=== PATIENT | female | born 1945 | race Caucasian/White ===

== ENCOUNTER 2016-09-05 20:24 | Inpatient (IN) | payer MEDICARE ==
[~2016-09-05] VITALS: Ht 160 cm; Wt 90.0 kg
[~2016-09-05 20:24] MED LIST: ADVA250A INH; AMLO5TAB96 PO; ATOR20TA42 PO; CYMB60CA PO; DIOV160T3 PO; DUONSOL2 NEB; MONT10TA2 PO; NAPR-576 PO; NEXI40CA PO; TRAM50TA PO; [UNRECOGNIZED DRUG - CODE]
[2016-09-05 20:30] VITALS: BP 199/93; PULSE 91; RESP 26; TEMP 98.6; O2SAT 95
[2016-09-05] MEDS ORDERED: SPIRCAP INH (20:37)
[2016-09-05] MEDS ORDERED: JANU50TA8 PO (20:37)
[2016-09-05] MEDS ORDERED: DIOV160T3 PO (20:38)
--- NOTE | 2016-09-05 20:43 | PD ---
HPI Chief Complaint: Respiratory Symptoms Time Seen by Provider: 20:36 Travel History International Travel<30 days: No Contact w/Intl Traveler<30days: No Traveled to known affect area: No History of Present Illness HPI Patient is a 70-year-old female with history of COPD who uses 2L nasal canula O2 at all times, presents to ER with complaints of COPD exacerbation. Patient reports that since Monday, she has been feeling increasingly short of breath. Patient reports that she has had increased cough and congestion with thick green to yellow mucus production. Patient reports no fevers or chills, reports that she has increased chest congestion with no chest pain. Patient reports no recent travels or trips. Patient with no sick contacts. Patient reports that she feels as if this is COPD exacerbation. When EMS arrived on scene, patient's pulse ox was 85-87% on room air. Patient was given one 25 mg of Solu-Medrol as well as 2 treatments with minimal relief of symptoms. PFSH Past Medical History COPD: Yes (wears o2 2l) Diabetes: Yes Patient Takes Glucophage: Yes Hypertension: Yes Influenza Vaccination: Yes ?: Not Past Surgical History Hysterectomy: Yes Family History Family History: Negative Social History Alcohol Use: No Tobacco Use: No Substance Use: No Allergies-Medications (Allergen,Severity, Reaction): Coded Allergies: Penicillin (Verified Allergy, Severe, Hives, 09/05/16) Erythromycin (Verified Allergy, Mild, Yeast infection, 09/05/16) Reported Meds & Prescriptions Reported Meds & Active Scripts Active Reported Diovan Hct (Valsartan-Hydrochlorothiazide) 160-12.5 Mg Tab 1 Tab PO DAILY Janumet (Sitagliptin-Metformin) 50-1,000 Mg Tab 1 Tab PO DAILY Spiriva Handihaler (Tiotropium Inh) 18 Mcg Cap 18 Mcg INH DAILY 1 capsule = 18 mcg Review of Systems General / Constitutional: No: Fever Eyes: No: Visual changes HENT: No: Headaches Cardiovascular: No: Chest Pain or Discomfort Respiratory: Positive: Cough, Shortness of Breath, Wheezing Gastrointestinal: No: Nausea, Vomiting, Diarrhea, Abdominal Pain Genitourinary: No: Dysuria Musculoskeletal: No: Pain Skin: No Rash Neurologic: No: Weakness Psychiatric: No: Depression Endocrine: No: Polydipsia Hematologic/Lymphatic: No: Easy Bruising Physical Exam Narrative GENERAL: Patient in moderate distress SKIN: Warm and dry. HEAD: Atraumatic. Normocephalic. EYES: Pupils equal and round. No scleral icterus. No injection or drainage. ENT: No nasal bleeding or discharge. Mucous membranes pink and moist. NECK: Trachea midline. No JVD. CARDIOVASCULAR: Tachycardic. No murmur appreciated. RESPIRATORY: Positive accessory muscle use. Patient with scattered wheezing bilaterally with decreased breath sounds GASTROINTESTINAL: Abdomen soft, non-tender, nondistended. Hepatic and splenic margins not palpable. MUSCULOSKELETAL: No obvious deformities. No clubbing. No cyanosis. No edema. NEUROLOGICAL: Awake and alert. No obvious cranial nerve deficits. Motor grossly within normal limits. Normal speech. PSYCHIATRIC: Appropriate mood and affect; insight and judgment normal. Data Data Last Documented VS Vital Signs Date Time Temp Pulse Resp B/P Pulse Ox O2 Delivery O2 Flow Rate FiO2 09/05/16 22:30 97 22 142/89 94 Nasal Cannula 2 09/05/16 20:30 98.6 Orders Complete Blood Count With Diff (09/05/16 20:37) Comprehensive Metabolic Panel (09/05/16 20:37) B-Type Natriuretic Peptide (09/05/16 20:37) Act Partial Throm Time (Ptt) (09/05/16 20:37) Prothrombin Time / Inr (Pt) (09/05/16 20:37) Magnesium (Mg) (09/05/16 20:37) Ckmb (Isoenzyme) Profile (09/05/16 20:37) Troponin I (09/05/16 20:37) Urinalysis - C+S If Indicated (09/05/16 20:37) Influenzae A/B Antigen (09/05/16 20:37) Blood Culture (09/05/16 20:37) Iv Access Insert/Monitor (09/05/16 20:37) Electrocardiogram (09/05/16 20:37) Ecg Monitoring (09/05/16 20:37) Oximetry (09/05/16 20:37) Oxygen Administration (09/05/16 20:37) Chest, Single Ap (09/05/16 20:37) Sodium Chloride 0.9% Flush (Ns Flush) (09/05/16 20:45) Albuterol-Ipratropium Neb (Duoneb Neb) (09/05/16 20:45) Albuterol Neb (Albuterol Neb) (09/05/16 22:30) Aspirin (Aspirin) (09/05/16 23:00) Labs Laboratory Tests Test 09/05/16 09/05/16 20:40 22:00 White Blood Count 8.1 TH/MM3 Red Blood Count 4.20 MIL/MM3 Hemoglobin 12.8 GM/DL Hematocrit 38.4 % Mean Corpuscular Volume 91.4 FL Mean Corpuscular Hemoglobin 30.6 PG Mean Corpuscular Hemoglobin 33.4 % Concent Red Cell Distribution Width 13.5 % Platelet Count 376 TH/MM3 Mean Platelet Volume 9.8 FL Neutrophils (%) (Auto) 59.5 % Lymphocytes (%) (Auto) 25.7 % Monocytes (%) (Auto) 11.7 % Eosinophils (%) (Auto) 2.5 % Basophils (%) (Auto) 0.6 % Neutrophils # (Auto) 4.8 TH/MM3 Lymphocytes # (Auto) 2.1 TH/MM3 Monocytes # (Auto) 0.9 TH/MM3 Eosinophils # (Auto) 0.2 TH/MM3 Basophils # (Auto) 0.0 TH/MM3 CBC Comment DIFF FINAL Differential Comment Prothrombin Time 10.2 SEC Prothromb Time International 0.9 RATIO Ratio Activated Partial 27.8 SEC Thromboplast Time B-Type Natriuretic Peptide 92 PG/ML Sodium Level 141 MEQ/L Potassium Level 3.8 MEQ/L Chloride Level 102 MEQ/L Carbon Dioxide Level 33.2 MEQ/L Anion Gap 6 MEQ/L Blood Urea Nitrogen 9 MG/DL Creatinine 0.77 MG/DL Estimat Glomerular Filtration 75 ML/MIN Rate Random Glucose 197 MG/DL Calcium Level 8.9 MG/DL Magnesium Level 1.8 MG/DL Total Bilirubin 0.3 MG/DL Aspartate Amino Transf 9 U/L (AST/SGOT) Alanine Aminotransferase 13 U/L (ALT/SGPT) Alkaline Phosphatase 90 U/L Total Creatine Kinase 66 U/L Troponin I 0.06 NG/ML Total Protein 6.5 GM/DL Albumin 3.3 GM/DL [facility] Medical Decision Making Medical Screen Exam Complete: Yes Emergency Medical Condition: Yes Interpretation(s) ekg at 2048: nsr at 93bpm, qt/qtc: 346/397, no acute st or t wave changes Vital Signs Date Time Temp Pulse Resp B/P Pulse Ox O2 Delivery O2 Flow Rate FiO2 09/05/16 20:30 60 26 91 Room Air 09/05/16 20:30 98.6 91 26 199/93 95 Nasal Cannula 2 Differential Diagnosis Pneumonia, COPD exacerbation, influenza, ACS, arrhythmia, PE, pneumothorax Narrative Course Patient is a 70-year-old female who presents to emergency room with complaints of COPD exacerbation. Patient reports that she has been feeling sick since Monday, reports increased reductive cough, and congestion. Reports that she uses 2L NC at all times. No fever/chills/sick contacts. Patient does follow with Dr Guzman with pulmonology. Patient placed on manager monitoring as well as continuous pulse oximetry. CBC, BMP, x-ray chest ordered for evaluation of symptoms. We'll give patient 3 duo nebs, will continue to monitor her. Patient reevaluated, patient received 2 albuterol treatments, 3 duo nebs, patient still with increased work of breathing. Patient reports that she is only feeling mildly better with her neb treatments. Will continue to give patient neb treatments patient with continued work of breathing, will admit to [facility] Physician Communication Physician Communication Discussed case with Clifton Dupree will accept admission under Dr Luciano Diagnosis Primary Impression: COPD exacerbation Additional Impression: positive troponin Admitting Information Admitting Physician Requests: Observation Catherine Ward DO Sep 05, 2016 20:43
[2016-09-05] MEDS ORDERED: SODIUM CHLORIDE 0.9% FLUSH 5 ML FLUSH IVF PRN ×2 (20:45→23:30)
[2016-09-05 21:10] VITALS: RESP 26; O2SAT 94
[2016-09-05] MEDS: RESP: ALBUTEROL 2.5 MG/IPRATROPIUM 0.5 MG NEB (SCH) INH (21:10)
--- NOTE | 2016-09-05 21:11 | RADRPT ---
EXAM DATE/TIME: 09/05/2016 20:47 [place] COMPARISON: No previous studies available for comparison. INDICATIONS : Shortness of breath and cough. MEDICAL HISTORY : Hypertension. Diabetes mellitus type II. Chronic obstructive pulmonary disease. SURGICAL HISTORY : None. ENCOUNTER: Initial ACUITY: 3 days PAIN SCORE: 0/10 LOCATION: Bilateral chest FINDINGS: A single view of the chest demonstrates the lungs to be symmetrically aerated without evidence of mas s, infiltrate or effusion. Mild basilar atelectasis or scarring. The cardiomediastinal contours are unremarkable. Osseous structures are intact. CONCLUSION: 1. Minimal basilar atelectasis or scarring. No significant effusion. Bashir Crouch MD on September 05, 2016 at 21:09 Board Certified Radiologist. This report was verified electronically.
[2016-09-05 21:50] LABS: AUTOMATED NEUTROPHIL # 4.8 TH/MM3 (1.8-7.7); BASOPHIL % 0.6 % (0.0-2.0); EOSINOPHIL # 0.2 TH/MM3 (0-0.4); EOSINOPHIL % 2.5 % (0.0-4.0); HEMATOCRIT 38.4 % (35.0-46.0); HEMO FLAGS DIFF FINAL; LYMPH % 25.7 % (9.0-44.0); LYMPHOCYTE # 2.1 TH/MM3 (1.0-4.8); MEAN CELL VOLUME 91.4 FL (80.0-100.0); MEAN CORPUSCULAR HEMOGLOBIN 30.6 PG (27.0-34.0); MEAN CORPUSCULAR HGB CONC 33.4 % (32.0-36.0); MONO % 11.7 % (0.0-8.0); NEUT % 59.5 % (16.0-70.0); PLATELET COUNT 376 TH/MM3 (150-450); RED CELL DISTRIBUTION WIDTH 13.5 % (11.6-17.2); WHITE BLOOD COUNT 8.1 TH/MM3 (4.0-11.0)
[2016-09-05 21:54] LABS: APTT (PATIENT) 27.8 SEC (24.3-30.1); INTERNATIONAL NORMALIZED RATIO 0.9 RATIO; PROTHROMBIN TIME - PATIENT 10.2 SEC (9.8-11.6)
[2016-09-05 22:30] VITALS: BP 142/89; PULSE 97; RESP 22; O2SAT 94
[2016-09-05 22:54] LABS: ALKALINE PHOSPHATASE 90 U/L (45-117); ALT (GPT) 13 U/L (10-53); ANION GAP 6 MEQ/L (5-15); AST (GOT) 9 U/L (15-37); BICARBONATE 33.2 MEQ/L (21.0-32.0); BLOOD UREA NITROGEN 9 MG/DL (7-18); CHLORIDE 102 MEQ/L (98-107); GLOMERULAR FILTRATION RATE 75 ML/MIN (>89); MAGNESIUM 1.8 MG/DL (1.5-2.5); POTASSIUM 3.8 MEQ/L (3.5-5.1); SODIUM (NA) 141 MEQ/L (136-145); TOTAL BILIRUBIN ADULT 0.3 MG/DL (0.2-1.0)
[2016-09-05 22:55] LABS: CREATINE KINASE 66 U/L (26-192)
[2016-09-05] MEDS: RESP: ALBUTEROL 2.5 MG/3 ML NEB (SCH) INH (22:58)
[2016-09-05] MEDS ORDERED: ASPIRIN 325 MG TAB PO ONE (23:00)
[2016-09-05] MEDS ORDERED: RESP: ALBUTEROL 2.5 MG/3 ML NEB (PRN) INH (23:30)
[2016-09-05] MEDS ORDERED: BISACODYL 10 MG SUPP PR PRN (23:30)
[2016-09-05] MEDS ORDERED: SENNOSIDES 8.6 MG TAB PO PRN (23:30)
[2016-09-05] MEDS ORDERED: ONDANSETRON HCL 4 MG/2 ML VIAL IVP PRN (23:30)
[2016-09-05] MEDS ORDERED: ACETAMINOPHEN 325 MG TAB PO PRN (23:30)
[2016-09-06] VITALS (11 sets, daily range): BP systolic 126–170; BP diastolic 64–88; PULSE 68–111; RESP 17–22; TEMP 97.6–98.7; O2SAT 90–98
[2016-09-06] MEDS: methylPREDNISolone SOD SUCC 125 MG/2 ML VIAL IVP SCH ×3 (01:04→12:41)
[2016-09-06] MEDS: RESP: ALBUTEROL 2.5 MG/IPRATROPIUM 0.5 MG NEB (SCH) INH ×4 (03:39→20:41)
[2016-09-06] MEDS ORDERED: DEXTROSE 50% IN WATER 50 ML VIAL(D50) IV PUSH PRN (08:30)
[2016-09-06] MEDS ORDERED: GLUCAGON 1 MG/ML VIAL OTHER PRN (08:30)
[2016-09-06] MEDS ORDERED: NON-FORMULARY DRUG (Sitagliptin-Metformin (Janumet) 1 TAB) PO SCH (09:00)
[2016-09-06] MEDS ORDERED: NON-FORMULARY DRUG (Valsartan-Hydrochlorothiazide (Diovan Hct) 1 TAB) PO SCH (09:00)
--- NOTE | 2016-09-06 10:20 | HP.UPD ---
H&P Update Note Is a 70-year-old female admitted with COPD exacerbation. She has problems with diabetes, obesity and COPD. Her troponin is marginally elevated at 0.06. She denies any chest pain at this time. She will be continued on supplemental oxygen, intravenous steroids and empiric antibiotics. Home medications are continued. Metformin is on hold. Sliding scale of insulin is ordered in addition to long-acting insulin temporarily. Full history and physical dictated by nurse practitioner. The patient was seen and examined by the undersigned in room g 81 today 09/06/16 Ryann Lentz MD Sep 06, 2016 10:18
--- NOTE | 2016-09-06 10:34 | MH ---
cc: LEODAN BRIGGS MD DATE OF ADMISSION: 09/05/2016 DATE OF : 1945 CHIEF COMPLAINT Shortness of breath, cough, congestion. HISTORY OF PRESENT ILLNESS This is a pleasant 70-year-old white female who had been in her usual state of health up until the past week. She started complaining of generalized weakness and cough 5-6 days ago. States that she increasingly got short of breath. She has had some congestion with a green-yellow thick mucus, and she continues to cough this mucus up currently as we are speaking. The patient denies any fever, denies any chills. She does have some generalized muscle aches and weakness. She has had a decreased appetite with some nausea but no vomiting. On Monday, three days ago, the patient did complain of chest burning. She states that this is something that his familiar to her when she starts to get sick with cough and congestion. She does not relate this to any type of cardiac chest pain and has never had a history of heart disease. The patient denies any recent travel. She has not been in contact with any sick friends or relatives. She does have a significant history of COPD with exacerbation and a history of tobacco use. She states that she quit smoking approximately three months ago. PAST MEDICAL HISTORY 1. COPD with home O2. 2. Diabetes mellitus. 3. Hypertension. PAST SURGICAL HISTORY Hysterectomy. ALLERGIES 1. PENICILLIN. 2. ERYTHROMYCIN. MEDICATIONS Medications reported: 1. Diovan. 2. Janumet. 3. Spiriva inhaler. SOCIAL HISTORY The patient is for many years. Lives in her home with a significant other. She denies any alcohol use. No illicit drugs. Positive for long-term tobacco use up until three months ago, states that she quit cold turkey. FAMILY HISTORY COPD and heart disease. REVIEW OF SYSTEMS A 12-point review was done. Positives include cough, congestion, shortness of breath, chest burning x1, decreased appetite. All other systems are negative or unremarkable. PHYSICAL EXAMINATION VITAL SIGNS: Temperature 98.7, pulse labile between 68 and 94, respiratory rate labile between 17 and 22. Currently during this exam I noted her to be around 26 per minute. Blood pressure 138/77, high noted 168/74. O2 sat between 90 and 96% on two liters. GENERAL: This is a white female who looks her stated age, resting in the bed, head of the bed elevated approximately 70 degrees. She does have some mild dyspnea noted at rest. SKIN: Slightly pale but warm and dry. No rashes. HEENT: Atraumatic, normocephalic. PERRLA at 2 mm. No scleral icterus. No drainage. Mucous membranes are pink and slightly dry. NECK: Supple. CARDIOVASCULAR: Tachycardic rate. Heart sounds distant. No murmurs, rubs or gallops appreciated. She has no edema and her pulses are intact. LUNGS: Mild wheezing noted on expiration bilaterally, predominantly in the upper lobes. Minimal decreased breath sounds at the bases. ABDOMEN: Soft, nontender, nondistended. Active bowel sounds in all four quadrants. EXTREMITIES: She moves all of her extremities with purpose. She has no clubbing, cyanosis or edema. NEUROLOGIC: Awake and alert, answers questions, a good historian. Speech is clear. PSYCHIATRIC: Appropriate mood. Judgment is normal. DIAGNOSTIC DATA Sodium 141, potassium 3.8, chloride 102, carbon dioxide 33.2, anion gap 6, BUN 9, creatinine 0.77, glucose 197. AST is 9. Troponin x3 are 0.06, 0.06 and 0.04. BNP 92. Albumin 3.3. Total protein 6.5. WBC count 8.1, hemoglobin 12.8, hematocrit 38.4, platelet count 376, monocytes 11.7. INR is 0.9. Chest x-ray shows minimal basilar atelectasis. No significant effusion. ASSESSMENT 1. COPD exacerbation. 2. Hypertension. 3. History of depression. 4. Positive troponin, rule out [place]. 5. Tobacco abuse. PLAN 1. Admit for observation. Vital signs q.4h. Will start her on IV prednisone 60 mg q.6h., duo nebs, O2 at two liters and monitor her vital signs which will include fever, pulse, respiratory rate and blood pressure. 2. For her diabetes will add Accu-Cheks and protocols for hypo or hyperglycemia, sliding scale insulin. 3. For her hypertension we will reconcile her medications and monitor any abnormals. 4. For her asthma this will include her duo nebs and assessment for any shortness of breath or change in lung sounds. 5. For her positive troponin we will monitor telemetry, monitor vital signs and rule out any cardiac events. Will monitor her labs. She is to report any further chest pain. She will get EKGs for any further pain. 6. Tobacco abuse. Education and encouragement to continue her abstinence. 7. The patient will have DVT prophylaxis with aspirin and PUD prognosis with Protonix. 8. Will monitor EKG. 9. PRN for fever and pain. 10.Bowel regimen with stool softeners and/or laxative as Warranted. Dictated by: LEONARD Morin MD SONIA Moreno/ZHANE /8:30 AM /10:33 AM
[2016-09-06] MEDS: SODIUM CHLORIDE 0.9% FLUSH 5 ML FLUSH IVF SCH ×2 (10:47→20:24)
[2016-09-06] MEDS: HEPARIN SODIUM - SQ 10,000 UNITS/ML VIAL SQ SCH ×2 (10:48→20:24)
[2016-09-06] MEDS: VALSARTAN 160 MG TAB PO SCH (10:48)
[2016-09-06] MEDS: HYDROCHLOROTHIAZIDE 12.5 MG CAP PO SCH (10:48)
[2016-09-06] MEDS: PANTOPRAZOLE SOD 40 MG DELAYED RELEASE TAB PO SCH (10:48)
[2016-09-06] MEDS: INSULIN DETEMIR 100 UNITS/ML VIAL SQ SCH ×2 (10:48→20:24)
[2016-09-06] MEDS ORDERED: metFORMIN HCL 500 MG TAB PO SCH (11:00)
[2016-09-06 11:18] LABS: BLOOD GAS BASE EXCESS 5.8 mmol/L (-2-2); BLOOD GAS CARBOXYHEMOGLOBIN 2.4 % (0-4); BLOOD GAS HCO3 31 mmol/L (22-26); BLOOD GAS METHEMOGLOBIN 1.9 % (0-2); BLOOD GAS O2 HGB SATURATION 82 % (90-100); BLOOD GAS OXYGEN CONTENT 14.9 Vol % (12.0-20.0); BLOOD GAS PCO2 54 mmHg (38-42); BLOOD GAS PO2 49 mmHG (61-120); BLOOD GAS TOTAL HGB 12.9 G/DL (12.0-16.0); TEMP CORR TO 98.6
[2016-09-06 11:19] LABS: CRITICAL VALUE YES; DRAW SITE RT RADIAL; FIO2 21 %; NUMBER OF ARTERIAL PUNCTURES 1; STAT NO; ULNAR PULSE PRESENT
[2016-09-06] MEDS: INSULIN ASPART SUPPLEMENTAL SCALE SQ SCH ×3 (12:41→20:23)
[2016-09-06 12:43] LABS: BLOOD, URINE SMALL (NEG); COMMENT (UR) CULT NOT INDICATED; CULTURE IF INDICATED CULT NOT INDICATED; GLUCOSE,URINE 1000 mg/dL (NEG); KETONE, URINE NEG (NEG); MUCUS URINE FEW /lpf (OCC); NITRITE,URINE NEG (NEG); PH, URINE 6.5 (5.0-8.5); SQUAMOUS EPITHELIAL CELL URINE 1 /hpf (0-5); URINE COLOR YELLOW (YELLW/STRAW)
--- NOTE | 2016-09-06 13:30 | EKG ---
Date Performed: 09/05/2016 Time Performed: 20:49:58 PTAGE: 70 years EKG: Sinus rhythm WITH OCCASIONAL ECTOPIC PREMATURE COMPLEXES LEFT ANTERIOR FASCICULAR BLOCK POSSIBLE ANTERIOR MYOCARD IAL INFARCTION ABNORMAL ECG NO PREVIOUS TRACING DOCTOR: Ana Luisa Galeas Interpretating Date/Time 09/06/2016 13:29:24
--- NOTE | 2016-09-06 13:38 | EKG ---
Date Performed: 09/06/2016 Time Performed: 01:07:28 PTAGE: 70 years EKG: Sinus rhythm WITH FREQUENT VENTRICULAR PREMATURE COMPLEXES WITH OCCASIONAL SUPRAVENTRICULAR PREMATURE COMPLEXES M ARKED LEFT AXIS DEVIATION ABNORMAL ECG Compared to prior tracing no significant change PREVIOUS TRACING : 09/05/2016 20.49 DOCTOR: Ana Luisa Galeas Interpretating Date/Time 09/06/2016 13:37:53
[2016-09-06] MEDS: LEVOFLOXACIN 500 MG PREMIX INJ 100 ML IV SCH (14:36)
--- NOTE | 2016-09-06 14:50 | EKG ---
Date Performed: 09/06/2016 Time Performed: 07:05:36 PTAGE: 70 years EKG: Sinus rhythm WITH OCCASIONAL SUPRAVENTRICULAR PREMATURE COMPLEXES LEFT ANTERIOR FASCICULAR BLOCK POSSIBLE ANTERIO R MYOCARDIAL INFARCTION ABNORMAL ECG Compared to the PREVIOUS TRACING , frequent unifocal PVCs have resolved PREVIOUS TRACIN09/06/2016 01.0 7 DOCTOR: Ana Luisa Galeas Interpretating Date/Time 09/06/2016 14:49:19
[2016-09-06] MEDS: methylPREDNISolone SOD SUCC 40 MG/1 ML VIAL IVP SCH ×2 (17:29→23:05)
--- NOTE | 2016-09-06 20:14 | MB ---
cc: DGAOBERTO KWONG DATE OF CONSULTATION 09/06/2016 REASON FOR CONSULTATION Chronic obstructive pulmonary disease and respiratory distress. HISTORY OF THE PRESENT ILLNESS This is a 70-year-old white female with longstanding history of COPD and chronic bronchitis was admitted with progressive shortness of breath, cough, chest congestion, greenish expectoration and weakness. The patient denied fevers, denied hemoptysis. She has had reflux and had some nausea but no vomiting. She also has had some leg swelling. Since she was not able to feel any better in spite of using her nebulizers, she was brought to the emergency room and subsequently admitted. The patient has been a long-time smoker but has quit smoking recently. PAST MEDICAL HISTORY The patient past history has included: 1. Chronic obstructive pulmonary disease with chronic bronchitis and emphysema, oxygen-dependent. 2. History of diabetes and hypertension. PAST SURGICAL HISTORY She has had a hysterectomy. No other surgery. SOCIAL HISTORY Habits, the patient smoked one-pack per day for over 35 years and quit 3 months ago. Alcohol use none. FAMILY HISTORY Significant for heart disease and chronic bronchitis. REVIEW OF SYSTEMS The patient has gained weight. She has leg swelling. She has joint pains of her extremities. She has cough and wheezing, epigastric distress and reflux. Denies urinary symptoms. Denies leg or calf muscle pains. She has some anxiety attacks. PHYSICAL EXAMINATION GENERAL: This elderly moderately obese white female is alert and moderately dyspneic. VITAL SIGNS: Blood pressure is 145/80, pulse is 92, respiratory rate 22, temperature 98. HEENT: Head is normocephalic. Pupils are reactive. Tongue is moist. Throat is injected. Nasal mucosa erythematous. NECK: Supple. No bruits. No venous distention or thyromegaly. CHEST: Equal movements with an increased AP diameter. Expiratory wheezes throughout both lung smart with distant breath sounds and prolonged expirations. HEART: The heart sounds are regular S1-S2. No murmur. ABDOMEN: Soft. Protuberant. No masses. No organomegaly. EXTREMITIES: Mild edema with decreased peripheral pulses. Reflexes are normal. NEUROLOGICAL: The patient is alert and oriented and cooperative. SKIN: No lesions noted. IMPRESSION 1. COPD with acute exacerbation. 2. Emphysema with chronic bronchitis. 3. Hypertension. 4. Depression and anxiety. PLAN 1. The patient has been started on nebulized DuoNeb solution q.i.d. 2. Add Levaquin 500 milligrams IV daily. 3. Solu-Medrol 40 mg IV every 6 hours will be continued. 4. Blood sugar needs to be monitored. 5. We will get a bedside pulmonary function study this week. 6. Continue with antihypertensive medications. 7. Her present chest x-ray does not show any active infiltrates but sputum will be sent for Gram stain and culture. 8. Oxygen supplementation at 3 liters was placed and we will be weaned down. I will follow the case with you Dr. Lentz. Thank you for this consultation. Dagoberto Kwong MD JMATIAS/CHANTEL /7:16 PM /7:56 PM
[2016-09-07] MEDS: RESP: ALBUTEROL 2.5 MG/IPRATROPIUM 0.5 MG NEB (SCH) INH ×4 (04:07→19:52)
[2016-09-07 04:34] VITALS: BP 120/64; PULSE 95; RESP 20; TEMP 97.8; O2SAT 96
[2016-09-07] MEDS: methylPREDNISolone SOD SUCC 40 MG/1 ML VIAL IVP SCH ×3 (05:11→21:42)
[2016-09-07] MEDS: INSULIN ASPART SUPPLEMENTAL SCALE SQ SCH ×4 (06:03→21:42)
[2016-09-07 09:04] VITALS: O2SAT 95
--- NOTE | 2016-09-07 09:13 | HHI.PR ---
Subjective Remarks No SOB at rest Exertional dyspnea mild Appetite improving No headache No restlessness noted Objective Objective Results - Vital Signs Date Time Temp Pulse Resp B/P Pulse Ox O2 Delivery O2 Flow Rate FiO2 09/07/16 09:04 95 Nasal Cannula 3.00 09/07/16 04:34 97.8 95 20 120/64 96 09/06/16 23:03 97.7 96 20 137/64 96 09/06/16 19:33 93 Nasal Cannula 3.00 09/06/16 18:50 95 18 170/70 95 09/06/16 14:34 97.6 95 22 145/71 90 09/06/16 13:44 93 Nasal Cannula 3.00 09/06/16 11:25 97.8 111 22 126/79 91 I/O 09/06/16 09/06/16 09/06/16 09/07/16 09/07/16 09/07/16 07:00 15:00 23:00 07:00 15:00 23:00 Intake Total 480 ml Output Total 300 ml 400 ml Balance 180 ml -400 ml Intake Oral 480 ml Output Urine Total 300 ml 400 ml # Voids 3 1 Result Diagram: 09/05/16203909/05/162199 Other Results Last Impressions Chest X-Ray 09/05/162036 Signed Impressions: Service Date/Time: Monday, September 05, 2016 20:47 - CONCLUSION: 1. Minimal basilar atelectasis or scarring. No significant effusion. Bashir Crouch MD Medications and IVs Active Medications Hydrochlorothiazide (Microzide) 12.5 mg DAILY PO Last administered on 09/06/16 10:48; Admin Dose 12.5 MG; Start 09/06/16 at 10:00 Insulin Detemir (Levemir Inj) 5 units Q12HR SQ Last administered on 09/06/16 20 :24; Admin Dose 5 UNITS; Start 09/06/16 at 10:15 Levofloxacin/ Dextrose (Levaquin 500 Mg Premix Inj) 100 ml @ 100 mls/hr Q24H IV Last administered on 09/06/16 14:36; Admin Dose 100 MLS/HR; Start 09/06/16 at 14:00 Metformin HCl (Glucophage) 1,000 mg DAILY PO; Start 09/06/16 at 11:00; Stop at 11:00; Status DC Methylprednisolone Sodium Succinate 40 mg 40 mg Q6HR IVP Last administered on 05:11; Admin Dose 40 MG; Start 09/06/16 at 18:00 Sitagliptin Phosphate (Januvia) 50 mg DAILY PO; Start 09/06/16 at 11:00; Stop at 11:00; Status DC Valsartan (Diovan) 160 mg DAILY PO Last administered on 09/06/16 10:48; Admin Dose 160 MG; Start 09/06/16 at 10:00 ROS General: Weakness (improving), Other (10 point ROS done. Positives include weakness but improving, anxiety over current condition and outside factors,. All other systems negative or unremarkable) Pulmonary: Cough (improving) Neuro/MS: Other (anxiety outside and medical, scared) Physical Exam Physical Exam GENERAL: This is a white female who looks her stated age, resting in the bed, head of the bed elevated 90. SKIN: Slightly pale but warm and dry. No rashes. HEENT: Atraumatic, normocephalic. PERRLA at 3 mm. No scleral icterus. No drainage. Mucous membranes are pink and slightly dry. NECK: Supple. CARDIOVASCULAR: Tachycardic rate. Heart sounds distant. No murmurs, rubs or gallops appreciated. She has no edema and her pulses are intact. LUNGS: Mild wheezing , Minimal decreased breath sounds at the bases ABDOMEN: Soft, nontender, nondistended. Active bowel sounds in all four quadrants. EXTREMITIES: She moves all of her extremities with purpose. She has no clubbing, cyanosis or edema. NEUROLOGIC: Drowsy, but responds to verbal stimuli answers questions, a good historian. Speech is clear. Objective Remarks I am resting better this morning. A/P Assessment and Plan ASSESSMENT 1. COPD exacerbation. 2. Hypertension. 3. History of depression. 4. Positive troponin, rule out [place]. 5. Tobacco abuse. Vital signs q.4h. Mild hyperglycemia probably secondary to IV steroids. Monitor duo nebs, O2 at 2L , prn now Accu-Cheks and protocols for hypo or hyperglycemia, sliding scale insulin. reconcile her medications , done Telemetry, regular rate and rhythm no issues shortness of breath or change in lung sounds. EKGs if patient has any chest pain Tobacco abuse. Education and encouragement to continue her abstinence. The patient will have DVT prophylaxis with aspirin and PUD prognosis with Protonix. PRN for fever and pain management affective Bowel regimen with stool softeners and/or laxative as Warranted. Patient is less short of breath this a.m. discussed her plan of care, We'll follow needs today Discharge Planning home vs family Discussed With: Nurse, Family (patient), Other (Dr. Lentz, patient seen on his behalf) Lorena Canseco Sep 07, 2016 09:13
[2016-09-07] MEDS: HYDROCHLOROTHIAZIDE 12.5 MG CAP PO SCH (10:22)
[2016-09-07] MEDS: VALSARTAN 160 MG TAB PO SCH (10:24)
[2016-09-07] MEDS: INSULIN DETEMIR 100 UNITS/ML VIAL SQ SCH ×2 (10:25→21:42)
[2016-09-07] MEDS: PANTOPRAZOLE SOD 40 MG DELAYED RELEASE TAB PO SCH (10:25)
[2016-09-07] MEDS: HEPARIN SODIUM - SQ 10,000 UNITS/ML VIAL SQ SCH ×2 (10:26→21:41)
[2016-09-07 13:10] VITALS: BP 138/79; PULSE 94; RESP 21; TEMP 98; O2SAT 98
[2016-09-07] MEDS: SODIUM CHLORIDE 0.9% FLUSH 5 ML FLUSH IVF SCH ×2 (13:39→21:41)
[2016-09-07] MEDS: LEVOFLOXACIN 500 MG PREMIX INJ 100 ML IV SCH (13:40)
[2016-09-07] MEDS ORDERED: ALBUTEROL SULFATE 90 MCG/ACT HFA 18 GM INHALER INH PRN (14:15)
[2016-09-07] MEDS ORDERED: VANCOMYCIN INJ 1,000 MG in SODIUM CHLOR 0.9% 250 ML INJ 250 ML IV ONE (15:00)
[2016-09-07] MEDS ORDERED: Vancomycin Consult Pharmacy 1 EA OTHER SCH (15:15)
[2016-09-07 16:00] VITALS: BP 209/95; PULSE 131; RESP 26; TEMP 96.5; O2SAT 94
[2016-09-07] MEDS: VANCOMYCIN INJ 1,500 MG in SODIUM CHLORID 0.9% 500 ML INJ 500 ML IV SCH (18:07)
--- NOTE | 2016-09-07 18:18 | HHI.PR ---
Subjective Remarks Less wheezing.Coughing up yellow sputum.SOB at rest. Objective Vital Signs Date Time Temp Pulse Resp B/P Pulse Ox O2 Delivery O2 Flow Rate FiO2 09/07/16 16:00 96.5 131 26 209/95 94 09/07/16 13:10 98.0 94 21 138/79 98 09/07/16 09:04 95 Nasal Cannula 3.00 09/07/16 04:34 97.8 95 20 120/64 96 09/06/16 23:03 97.7 96 20 137/64 96 09/06/16 19:33 93 Nasal Cannula 3.00 09/06/16 18:50 95 18 170/70 95 I/O 09/06/16 09/06/16 09/06/16 09/07/16 09/07/16 09/07/16 07:00 15:00 23:00 07:00 15:00 23:00 Intake Total 480 ml Output Total 300 ml 400 ml Balance 180 ml -400 ml Intake Oral 480 ml Output Urine Total 300 ml 400 ml # Voids 3 1 Result Diagram: 09/05/16203909/05/162199 Objective Remarks GENERAL: This elderly moderately obese white female is alert and moderately dyspneic. HEENT: Head is normocephalic. Pupils are reactive. Tongue is moist. Throat is injected. Nasal mucosa erythematous. NECK: Supple. No bruits. No venous distention or thyromegaly. CHEST: Equal movements with an increased AP diameter. Expiratory wheezes Over both lung smart with distant breath sounds and prolonged expirations. HEART: The heart sounds are regular S1-S2. No murmur. ABDOMEN: Soft. Protuberant. No masses. No organomegaly. EXTREMITIES: Mild edema with decreased peripheral pulses. Reflexes are normal. NEUROLOGICAL: The patient is alert and oriented and cooperative. SKIN: No lesions noted. Assessment and Plan Assessment and Plan IMPRESSION 1. COPD with acute exacerbation. 2. Emphysema with chronic bronchitis. 3. Hypertension. 4. Depression and anxiety. 5. Asthmatic Bronchitis Plan : 1. Continue O2 at 3 L. 2. Continue Levaquin 500 mg daily. 3. Nebs qid , duoneb. 4. Solumedrol 40 mg IV q8h. 5. Labs in am. 6. Symbicort 160/4.5 Mcg , 2puffs bid. 7. Cont Diuretic daily. 8. D/C Vanco. Staph is probably contaminant. Ria Kwong MD Sep 07, 2016 18:18
[2016-09-07 19:53] VITALS: O2SAT 92
[2016-09-07 20:27] VITALS: BP 129/66; PULSE 89; RESP 18; TEMP 98; O2SAT 93
[2016-09-08] VITALS (7 sets, daily range): BP systolic 117–189; BP diastolic 66–115; PULSE 68–97; RESP 18–21; TEMP 96.5–98.8; O2SAT 94–98
[2016-09-08] MEDS: RESP: ALBUTEROL 2.5 MG/IPRATROPIUM 0.5 MG NEB (SCH) INH ×4 (03:26→20:04)
[2016-09-08] MEDS: methylPREDNISolone SOD SUCC 40 MG/1 ML VIAL IVP SCH ×3 (04:58→23:11)
[2016-09-08] MEDS: VANCOMYCIN INJ 1,500 MG in SODIUM CHLORID 0.9% 500 ML INJ 500 ML IV SCH (04:58)
[2016-09-08] MEDS: INSULIN ASPART SUPPLEMENTAL SCALE SQ SCH ×4 (06:21→23:11)
--- NOTE | 2016-09-08 07:56 | HHI.PR ---
Subjective Remarks sob improved mild cough no cp no fever no acute changes overnight asking about lab results Objective Objective Results - Vital Signs Date Time Temp Pulse Resp B/P Pulse Ox O2 Delivery O2 Flow Rate FiO2 09/08/16 06:15 98.1 82 20 117/66 94 09/08/16 00:27 98.0 74 20 163/89 94 09/07/16 20:27 98.0 89 18 129/66 93 09/07/16 19:53 92 Nasal Cannula 3.00 09/07/16 16:00 96.5 131 26 209/95 94 09/07/16 13:10 98.0 94 21 138/79 98 09/07/16 09:04 95 Nasal Cannula 3.00 I/O 09/07/16 09/07/16 09/07/16 09/08/16 09/08/16 09/08/16 07:00 15:00 23:00 07:00 15:00 23:00 Intake Total 1250 ml Output Total 0 ml 500 ml Balance 1250 ml -500 ml Intake Oral 750 ml IV Total 500 ml Output Urine Total 500 ml Stool Total 0 ml # Voids 1 3 Result Diagram: 09/05/16203909/05/160 Other Results Laboratory Tests Test 09/07/16 22:14 Nasal Screen MRSA (PCR) NEGATIVE Date/Time Procedure Status Source Growth 09/05/16 20:40 Influenza Types A,B Antigen (TAE) - Final Complete Nasal Aspirate NEGATIVE FOR FLU A AND B ANTIGEN.... 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 She is alert and awake, oriented x 3 HEAD: Normocephalic without any lesion or mass noted. Facial features appear symmetric. EYES: Perrla, Normal eye movement,no Icterus. no Conj congestion. OROPHARYNGEAL: Oropharynx without erythema or edema. MOUTH/THROAT: Tongue midline. Buccal mucosa is moist NECK: Supple. No nuchal rigidity or lymphadenopathy. Trachea midline without deviation. Thyroid not palpable, no bruits appreciated. CARDIAC: Regular rhythm, regular rate, S1 and S2 are heard. No Murmur; no gallops or rubs. LUNGS: Mild exp. wheeze, diminished at bases. ABDOMEN: Soft, nontender, no organomegaly or masses. Bowel sounds are heard in all four quadrants. No rebound. No guarding. EXTREMITIES: no edema. Pulses equal bilateral. no cyanosis. NEUROLOGICAL: Patient mood and affect appropriate. Cranial nerves II through XII grossly intact. Muscle strength 5/5 in the upper and lower extremities bilaterally. Deep tendon reflexes are 2+ in the upper and lower extremities bilaterally. SKIN:Warm and moist PSYCH: Mood and affect appropriate Urinary Catheter: No Vascular Central Line Catheter: No A/P Diagnosis: (1) COPD exacerbation (2) HYPERTENSION NOS (3) Depressive disorder (4) Tobacco abuse (5) Elevated troponin (6) Diabetes 1.5, managed as type 2 Assessment and Plan continue with duonebs/IV steroids/oxygen appreciate pulm input tobacco abuse counseling, needs to quit BC results noted, poss. contaminant will dc Vanco Continue Levaquin Accucheck AC/HS with ISS diabetic diet Trop noted, not trending up. start low dose ASA BP control, cont. home meds Heparin DVT prophylaxis Hopefully dc tomorrow improving CM for DC planning D/W RN D/W Dr. Lentz D/W pt This patient was seen by myself and Dr. Lentz, this note is written on his behalf. Discussed With: Nurse, Family (patient), Other (Dr. Lentz, patient seen on his behalf) Unique Jimenez Sep 08, 2016 07:56
--- NOTE | 2016-09-08 08:33 | HHI.FF ---
Face to Face Verification Diagnosis: (1) COPD exacerbation (2) Elevated troponin Home Health Nursing Order: Medical education Signs/symptoms of disease process Oxygen administration education Nursing assessment with vital signs [employer] Order: To Evaluate: Support services I have seen patient Karol Montano on 09/08/16. My clinical findings support the need for the requested home health care services because: Patient has SOB I certify that my clinical findings support that this patient is homebound because: Hx COPD- exertion dyspnea/weakness Unique Jimenez Sep 08, 2016 08:33
[2016-09-08] MEDS: SODIUM CHLORIDE 0.9% FLUSH 5 ML FLUSH IVF SCH ×2 (09:00→21:00)
[2016-09-08] MEDS: VALSARTAN 160 MG TAB PO SCH (09:29)
[2016-09-08] MEDS: HYDROCHLOROTHIAZIDE 12.5 MG CAP PO SCH (09:30)
[2016-09-08] MEDS: PANTOPRAZOLE SOD 40 MG DELAYED RELEASE TAB PO SCH (09:30)
[2016-09-08] MEDS: HEPARIN SODIUM - SQ 10,000 UNITS/ML VIAL SQ SCH ×2 (09:31→23:11)
[2016-09-08] MEDS: INSULIN DETEMIR 100 UNITS/ML VIAL SQ SCH ×2 (09:31→23:11)
[2016-09-08] MEDS: ASPIRIN EC 81 MG TABEC PO SCH (13:55)
[2016-09-08] MEDS: LEVOFLOXACIN 500 MG PREMIX INJ 100 ML IV SCH (16:07)
--- NOTE | 2016-09-08 16:25 | MB ---
cc: MARYJANE WESLEY M.D. DATE OF CONSULTATION: 09/08/2016. REASON FOR CONSULTATION: COPD exacerbation. HISTORY OF PRESENT ILLNESS: Mrs. Montano is a 70-year-old female who presents to the emergency room with increasing shortness of breath, cough and expectoration of whitish yellowish greenish mucoid sputum. She denies a history of fever or chills or hemoptysis. No history of TB or previous industrial exposure. The patient has not responded well to home therapy with progressive deterioration which brought her to the emergency room. PAST MEDICAL HISTORY: Her past medical history is that of: 1. COPD. 2. Hypertension. 3. Diabetes mellitus. 4. Previous hysterectomy. SOCIAL HISTORY: Remote smoking history. Has not smoked for the last three months or so. Does not drink any alcohol. Does not use drugs. FAMILY HISTORY: Positive for coronary artery disease as well as chronic lung disease. REVIEW OF SYSTEMS: A twelve-point review of systems is as per the history of present illness and past history, otherwise negative. MEDICATIONS: Her medications include: 1. Solu-Medrol IV. 2. Albuterol PRN. 3. Levofloxacin. 4. Diovan. 5. Hydrochlorothiazide. ALLERGIES: NONE KNOWN TO MEDICATIONS. PHYSICAL EXAMINATION: GENERAL: On exam, the patient is alert. VITAL SIGNS: Temperature 98 degrees Fahrenheit, pulse 80, respirations 16, blood pressure 160/80, oxygen saturation 94% on three liters oxygen nasal cannula. HEAD, EYES, EARS, NOSE, THROAT: Unremarkable. Eyes without icterus. NECK: Without adenopathy, thyroid enlargement. CHEST: Scattered rhonchi and wheezing bilaterally. CARDIAC: PMI distant. S1 and S2 audible. No murmur, no rub. ABDOMEN: Lax. Bowel sounds audible. EXTREMITIES: No cyanosis, clubbing or edema. LABORATORY DATA: White count 8.1, hemoglobin 12, hematocrit 38, platelets are 376,000. Sodium 141, potassium 3.8, BUN 8, creatinine 0.7. ABG shows pH 738, pCO2 54, pO2 49 on room air now on oxygen therapy. INR 0.9. IMAGING STUDIES: Chest x-ray: No acute infiltrate. IMPRESSION: 1. Hypoxic and hypercarbic respiratory failure. 2. COPD. 3. Hypertension. 4. Diabetes mellitus. 5. Obesity. PLAN: 1. The patient will be maintained on oxygen therapy as needed. 2. Bronchodilator therapy instituted. 3. Chest x-ray. 4. Arterial blood gas will be followed. 5. The patient's course will be followed closely and depending on progress, proceed further. She is still symptomatic despite therapy. She will require hospitalization until she is improved. I do thank you for asking me to partake in Mrs. Montano's care. Maryjane Wesley MD WWW/KRISTEN /2:42 PM /4:18 PM
[2016-09-09 04:13] VITALS: BP 198/81; PULSE 91; RESP 21; TEMP 98; O2SAT 97
[2016-09-09] MEDS ORDERED: PHARMACY ORDERED LAB XX ONE (04:45)
[2016-09-09] MEDS ORDERED: cloNIDine HCL 0.1 MG TAB PO PRN (05:30)
[2016-09-09] MEDS: methylPREDNISolone SOD SUCC 40 MG/1 ML VIAL IVP SCH ×2 (07:30→15:58)
[2016-09-09] MEDS: INSULIN ASPART SUPPLEMENTAL SCALE SQ SCH ×3 (07:30→16:08)
--- NOTE | 2016-09-09 08:18 | HHI.PR ---
Subjective Remarks still SOB with activity coughing, wheezing no fever BP elevated overnight doesn't feel ready to go home Objective Objective Results - Vital Signs Date Time Temp Pulse Resp B/P Pulse Ox O2 Delivery O2 Flow Rate FiO2 09/09/16 04:13 98.0 91 21 198/81 97 09/08/16 22:57 98.8 68 18 189/115 96 09/08/16 20:17 97.8 68 21 161/80 98 09/08/16 16:00 97.0 97 18 147/84 96 09/08/16 12:00 97.3 94 18 166/78 94 I/O 09/08/16 09/08/16 09/08/16 09/09/16 09/09/16 09/09/16 07:00 15:00 23:00 07:00 15:00 23:00 Intake Total 850 ml Output Total 500 ml 600 ml Balance -500 ml 250 ml Intake Oral 700 ml IV Total 150 ml Output Urine Total 500 ml 600 ml # Bowel Movements 0 Result Diagram: 09/05/16203909/05/162199 Other Results Date/Time Procedure Status Source Growth 09/05/16 20:40 Influenza Types A,B Antigen (TAE) - Final Complete Nasal Aspirate NEGATIVE FOR FLU A AND B ANTIGEN.... 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 She is alert and awake, oriented x 3 HEAD: Normocephalic without any lesion or mass noted. Facial features appear symmetric. EYES: Perrla, Normal eye movement,no Icterus. no Conj congestion. OROPHARYNGEAL: Oropharynx without erythema or edema. MOUTH/THROAT: Tongue midline. Buccal mucosa is moist NECK: Supple. No nuchal rigidity or lymphadenopathy. Trachea midline without deviation. Thyroid not palpable, no bruits appreciated. CARDIAC: Regular rhythm, regular rate, S1 and S2 are heard. No Murmur; no gallops or rubs. LUNGS: Diffuse exp. wheeze, scattered ronchi, cough. ABDOMEN: Soft, nontender, no organomegaly or masses. Bowel sounds are heard in all four quadrants. No rebound. No guarding. EXTREMITIES: no edema. Pulses equal bilateral. no cyanosis. NEUROLOGICAL: Patient mood and affect appropriate. Cranial nerves II through XII grossly intact. Muscle strength 5/5 in the upper and lower extremities bilaterally. Deep tendon reflexes are 2+ in the upper and lower extremities bilaterally. SKIN:Warm and moist PSYCH: Mood and affect appropriate Urinary Catheter: No Vascular Central Line Catheter: No A/P Diagnosis: (1) COPD exacerbation (2) HYPERTENSION NOS (3) Depressive disorder (4) Tobacco abuse (5) Elevated troponin (6) Diabetes 1.5, managed as type 2 Assessment and Plan continue with duonebs/IV steroids/oxygen appreciate pulm input tobacco abuse counseling, needs to quit BC results noted, poss. contaminant off Vanco Continue Levaquin-change to PO Accucheck AC/HS with ISS diabetic diet Trop noted, not trending up. low dose ASA BP control, cont. home meds Clonidine PRN added Heparin DVT prophylaxis CM for DC planning Not ready for discharge yet, remains with wheezing and SOB with minimal exertion D/W RN D/W Dr. Lentz D/W pt This patient was seen by myself and Dr. Lentz, this note is written on his behalf. Discussed With: Nurse, Family (patient), Other (Dr. Lentz, patient seen on his behalf) Unique Jimenez Sep 09, 2016 08:18
[2016-09-09 08:28] VITALS: O2SAT 99
[2016-09-09] MEDS: RESP: ALBUTEROL 2.5 MG/IPRATROPIUM 0.5 MG NEB (SCH) INH ×2 (08:28→15:29)
[2016-09-09 08:52] VITALS: BP 145/63; PULSE 85; RESP 19; TEMP 98.1; O2SAT 93
[2016-09-09] MEDS: ASPIRIN EC 81 MG TABEC PO SCH (10:14)
[2016-09-09] MEDS: HYDROCHLOROTHIAZIDE 12.5 MG CAP PO SCH (10:14)
[2016-09-09] MEDS: PANTOPRAZOLE SOD 40 MG DELAYED RELEASE TAB PO SCH (10:14)
[2016-09-09] MEDS: VALSARTAN 160 MG TAB PO SCH (10:14)
[2016-09-09] MEDS: SODIUM CHLORIDE 0.9% FLUSH 5 ML FLUSH IVF SCH (10:15)
[2016-09-09] MEDS: INSULIN DETEMIR 100 UNITS/ML VIAL SQ SCH (10:15)
[2016-09-09] MEDS: HEPARIN SODIUM - SQ 10,000 UNITS/ML VIAL SQ SCH (10:15)
[2016-09-09 12:33] VITALS: BP 158/77; PULSE 101; RESP 19; TEMP 96.8; O2SAT 93
[2016-09-09] MEDS ORDERED: LEVO500T3 PO (15:55)
[2016-09-09] MEDS ORDERED: PRED20 PO (15:55)
--- NOTE | 2016-09-09 15:56 | HHI.DCPOC ---
Discharge Care Plan Diagnosis: (1) COPD exacerbation Your Health Problems Are: Cough Shortness of Breath Goals to Promote Your Health * To prevent worsening of your condition and complications * To maintain your health at the optimal level Directions to Meet Your Goals Take your medications as prescribed Follow your dietary instruction Follow activity as directed Keep your appointments as scheduled Take your immunizations and boosters as scheduled If your symptoms worsen call your PCP, if no PCP go to Urgent Care Center or Emergency Room Smoking is Dangerous to Your Health. Avoid second hand smoke Call the 24-hour hour crisis hotline for domestic abuse at Unique Jimenez Sep 09, 2016 15:56
--- NOTE | 2016-09-09 15:57 | HHI.DS ---
Discharge Summary Admission Date Sep 07, 2016 at 15:01 Discharge Date: Sep 09, 2016 Admitting Diagnosis COPD Exacerbation (1) COPD exacerbation (2) HYPERTENSION NOS (3) Depressive disorder (4) Tobacco abuse (5) Elevated troponin (6) Diabetes 1.5, managed as type 2 CBC/BMP: 09/05/16203909/05/162199 Imaging Last Impressions Chest X-Ray 09/05/162036 Signed Impressions: Service Date/Time: Monday, September 05, 2016 20:47 - CONCLUSION: 1. Minimal basilar atelectasis or scarring. No significant effusion. Bashir Crouch MD Hospital Course This is a pleasant 70-year-old white female who had been in her usual state of health up until the past week. She started complaining of generalized weakness and cough 5-6 days ago. Stated that she was increasingly short of breath. She has had some congestion with a green-yellow thick mucus. The patient denied fever, denies any chills. She did have some generalized muscle aches and weakness. She has had a decreased appetite with some nausea but no vomiting. On Monday, three days ago, the patient did complain of chest burning. She stated that this is something that his familiar to her when she starts to get sick with cough and congestion. The patient denied any recent travel. She had not been in contact with any sick friends or relatives. She does have a significant history of COPD with exacerbation and a history of tobacco use. She states that she quit smoking approximately three months ago. She is on oxygen at home. Pt. was admitted with (1) COPD exacerbation (2) HYPERTENSION NOS (3) Depressive disorder (4) Tobacco abuse (5) Elevated troponin (6) Diabetes 1.5, managed as type 2 During the course of the hospitalization the following to place: Patient admitted, cultures were done Empiric antibiotics were started Patient continued on oxygen, put on DuoNeb's, IV Solu-Medrol Blood cultures came back, positive, staph epidermis, it was thought to be a contaminant. Vancomycin was discontinued She was continued on Levaquin Patient was put on Accucheck AC/HS with ISS diabetic diet Trop noted, not trending up. No evidence of ACS, patient started on low dose ASA BP was managed, resume home meds, Clonidine PRN added Heparin DVT prophylaxis CM consulted for for DC planning, home health care Patient improved somewhat, she was less short of breath with activity She felt comfortable going home, had oxygen at home and nebulizer Patient had significant other at home will be able to help her Home health care was arranged Patient was discharged home Instructed to follow-up with pulmonology in 10 days Continue on DuoNeb's and oral steroids Pt Condition on Discharge: Stable Discharge Disposition: Disch w/ Home Health Serv Discharge Instructions DIET: Follow Instructions for: Heart Healthy Diet Activities you can perform: Weight Bearing as Herman Follow up Referrals: PCP Follow-up Pulmonology - 10 Days with Maryjane Wesley MD New Medications: Levofloxacin (Levofloxacin) 500 Mg Tab 500 MG PO DAILY Infection #5 Ref 0 TAB Prednisone (Prednisone) 20 Mg Tab 20 MG PO BID 20 MG ORALLY TWICE A DAY X 4 DAYS, THEN 20 MG ORALLY X 4 DAYS, THEN 10 MG ORALLY X 4 Broncospasm #16 Ref 0 TAB Continued Medications: Sitagliptin-Metformin (Janumet) 50-1,000 Mg Tab 1 TAB PO DAILY Blood Sugar Management #60 Ref 0 TAB Tiotropium Inh (Spiriva Handihaler) 18 Mcg Cap 18 MCG INH DAILY 1 capsule = 18 mcg COPD #30 Ref 0 CAP Valsartan-Hydrochlorothiazide (Diovan Hct) 160-12.5 Mg Tab 1 TAB PO DAILY Blood Pressure Management #30 Ref 0 TAB Unique Jimenez Sep 09, 2016 15:57
[2016-09-09] MEDS: LEVOFLOXACIN 500 MG PREMIX INJ 100 ML IV SCH (15:58)
[2016-09-09 16:07] VITALS: BP 161/88; PULSE 100; RESP 18; TEMP 97.8; O2SAT 91
== END 2016-09-09 18:39 | disposition home health service (06) | DRG 192 ==
LOC: NEPA 20:24 → NEDA 23:05 → NEPGCP 09-06 02:13 → OBSVTOIN 09-07 15:01
PROVIDERS: ADMIT Specialist; ATTEND Specialist
DX: J44.1 Chronic obstructive pulmonary disease with (acute) exacerbation (principal); E11.65 Type 2 diabetes mellitus with hyperglycemia; Z99.81 Dependence on supplemental oxygen; K27.9 Peptic ulcer, site unspecified, unspecified as acute or chronic, without hemorrhage or perforation; J45.909 Unspecified asthma, uncomplicated; T38.0X5A Adverse effect of glucocorticoids and synthetic analogues, initial encounter; I10 Essential (primary) hypertension; F41.8 Other specified anxiety disorders; Z90.710 Acquired absence of both cervix and uterus; K21.9 Gastro-esophageal reflux disease without esophagitis; R74.8 Abnormal levels of other serum enzymes
CPT/HCPCS: 36600; 71010; 76937; 80053; 81001; 82550; 82805; 82948; 83735; 83880; 84484; 85025; 85610; 85730; 87040; 87186; 87205; 87641; 87804; 93005; 94640; 94664; G0378; J1644; J1815; J1956; J2920; J2930; J3370; J7040; J7613

== ENCOUNTER 2017-04-30 20:14 | Inpatient (IN) | payer MEDICARE ==
[~2017-04-30] VITALS: Ht 162.6 cm; Wt 93.9 kg
[~2017-04-30 20:14] MED LIST changes: -ADVA250A INH; -AMLO5TAB96 PO; -ATOR20TA42 PO; -CYMB60CA PO; -DUONSOL2 NEB; +JANU50TA8 PO; +LEVO500T3 PO; -MONT10TA2 PO; -NAPR-576 PO; -NEXI40CA PO; +PRED20 PO; +SPIRCAP INH; -TRAM50TA PO; -[UNRECOGNIZED DRUG - CODE]
[2017-04-30 20:18] VITALS: BP 164/74; TEMP 98.2
--- NOTE | 2017-04-30 20:27 | PD ---
HPI Chief Complaint: Respiratory Distress Time Seen by Provider: 20:21 Travel History International Travel<30 days: No Contact w/Intl Traveler<30days: No Traveled to known affect area: No History of Present Illness HPI 71-year-old female complains of shortness of breath. Patient has history of COPD on home O2. Patient states that she used her nebulizer 4 times a day. Patient started having some mild productive cough for the past few days. Patient denies any headache. Patient denies any chest pain. Patient denies abdominal pain. Patient denies any nausea vomiting diarrhea. Patient denies any fever chills. Patient on prednisone 10 g daily. Patient states that she smoked 4 cigarettes a day. Patient has history of hypertension, depressive disorder, diabetes type 2. PFSH Past Medical History Congestive Heart Failure: Yes COPD: Yes (wears o2 2l) Coronary Artery Disease: No Diabetes: Yes Hypertension: Yes Past Surgical History Hysterectomy: Yes Social History Alcohol Use: No Tobacco Use: No Substance Use: No Allergies-Medications (Allergen,Severity, Reaction): Coded Allergies: penicillin G (Unverified Allergy, Severe, Hives, 03/22/17) erythromycin base (Unverified Allergy, Mild, Yeast infection, 03/22/17) Reported Meds & Prescriptions Reported Meds & Active Scripts Active Reported Cymbalta DR (Duloxetine HCl) 30 Mg Capdr 30 Mg PO DAILY Proventil Hfa 6.7 GM Inh (Albuterol Sulfate) 90 Mcg/Act Aer 2 Puff INH Q4-6H PRN Glipizide 5 Mg Tab 5 Mg PO DAILY Take 30 minutes before a meal Cardizem (Diltiazem HCl) 30 Mg Tab 10 Mg PO QID Janumet (Sitagliptin-Metformin) 50-1,000 Mg Tab 1 Tab PO BID Prednisone 10 Mg Tab 10 Mg PO DAILY Diovan Hct (Valsartan-Hydrochlorothiazide) 160-12.5 Mg Tab 1 Tab PO DAILY Spiriva Handihaler (Tiotropium Inh) 18 Mcg Cap 18 Mcg INH DAILY 1 capsule = 18 mcg Review of Systems General / Constitutional: No: Fever Eyes: No: Visual changes HENT: No: Headaches Cardiovascular: No: Chest Pain or Discomfort Respiratory: Positive: Cough, Shortness of Breath, Wheezing Gastrointestinal: No: Abdominal Pain Genitourinary: No: Dysuria Musculoskeletal: No: Pain Skin: No Rash Neurologic: No: Weakness Psychiatric: No: Depression Endocrine: No: Polydipsia Hematologic/Lymphatic: No: Easy Bruising Physical Exam Narrative GENERAL: Well-nourished, well-developed patient. SKIN: Focused skin assessment warm/dry. HEAD: Normocephalic. EYES: No scleral icterus. No injection or drainage. NECK: Supple, trachea midline. No JVD or lymphadenopathy. CARDIOVASCULAR: Regular rate and rhythm without murmurs, gallops, or rubs. RESPIRATORY: Patient has diminished breath sounds bilaterally. Mild expiratory wheezes bilaterally. GASTROINTESTINAL: Abdomen soft, non-tender, nondistended. MUSCULOSKELETAL: No cyanosis, or edema. BACK: Nontender without obvious deformity. No CVA tenderness. Neurologic exam normal. Data Data Last Documented VS Vital Signs Date Time Temp Pulse Resp B/P (MAP) Pulse Ox O2 Delivery O2 Flow Rate FiO2 04/30/17 20:33 94 Nasal Cannula 2.00 04/30/17 20:21 103 20 04/30/17 20:18 98.2 164/74 (104) Orders Orders Complete Blood Count With Diff (04/30/17 20:21) Comprehensive Metabolic Panel (04/30/17 20:21) B-Type Natriuretic Peptide (04/30/17 20:21) Act Partial Throm Time (Ptt) (04/30/17 20:21) Prothrombin Time / Inr (Pt) (04/30/17 20:21) Urinalysis - C+S If Indicated (04/30/17 20:21) Influenzae A/B Antigen (04/30/17 20:21) Iv Access Insert/Monitor (04/30/17 20:21) Ecg Monitoring (04/30/17 20:21) Oximetry (04/30/17 20:21) Oxygen Administration (04/30/17 20:21) Chest, Single Ap (04/30/17 20:21) Sodium Chloride 0.9% Flush (Ns Flush) (04/30/17 20:30) Methylprednisolone So Succ Inj (Solumedr (04/30/17 20:30) Albuterol-Ipratropium Neb (Duoneb Neb) (04/30/17 20:30) Insulin Human Regular Inj (Novolin R Inj (04/30/17 22:00) Labs Laboratory Tests Test 04/30/17 20:15 White Blood Count 12.2 TH/MM3 Red Blood Count 4.06 MIL/MM3 Hemoglobin 12.2 GM/DL Hematocrit 39.3 % Mean Corpuscular Volume 96.7 FL Mean Corpuscular Hemoglobin 30.0 PG Mean Corpuscular Hemoglobin Concent 31.0 % Red Cell Distribution Width 15.0 % Platelet Count 202 TH/MM3 Mean Platelet Volume 10.2 FL Neutrophils (%) (Auto) 92.9 % Lymphocytes (%) (Auto) 4.1 % Monocytes (%) (Auto) 2.8 % Eosinophils (%) (Auto) 0.0 % Basophils (%) (Auto) 0.2 % Neutrophils # (Auto) 11.3 TH/MM3 Lymphocytes # (Auto) 0.5 TH/MM3 Monocytes # (Auto) 0.3 TH/MM3 Eosinophils # (Auto) 0.0 TH/MM3 Basophils # (Auto) 0.0 TH/MM3 CBC Comment DIFF FINAL Differential Comment Prothrombin Time 10.0 SEC Prothromb Time International Ratio 0.9 RATIO Activated Partial Thromboplast Time 23.2 SEC Blood Urea Nitrogen 29 MG/DL Creatinine 1.67 MG/DL Random Glucose 440 MG/DL Total Protein 6.2 GM/DL Albumin 3.1 GM/DL Calcium Level 9.2 MG/DL Alkaline Phosphatase 110 U/L Aspartate Amino Transf (AST/SGOT) 19 U/L Alanine Aminotransferase (ALT/SGPT) 22 U/L Total Bilirubin 0.6 MG/DL Sodium Level 137 MEQ/L Potassium Level 5.0 MEQ/L Chloride Level 96 MEQ/L Carbon Dioxide Level 31.3 MEQ/L Anion Gap 10 MEQ/L Estimat Glomerular Filtration Rate 30 ML/MIN B-Type Natriuretic Peptide 306 PG/ML [facility] Medical Decision Making Medical Screen Exam Complete: Yes Emergency Medical Condition: Yes Interpretation(s) Last Impressions Chest X-Ray 04/30/172020 Signed Impressions: Service Date/Time: Sunday, April 30, 2017 20:26 - CONCLUSION: Cardiomegaly with no evidence of pulmonary edema. Steve Jacobs MD 21:59 PM. CBC WBC 12.2. 92 neutrophil. Glucose 440. BUN 29. Creatinine 1.67. GFR 30. BNP 306. Differential Diagnosis Differential diagnosis including acute exacerbation COPD, bronchitis, pneumonia , PE, pneumothorax. Narrative Course 71-year-old female with shortness of breath. History of COPD on home O2. Albuterol with Atrovent unit dose treatment 3. Solu-Medrol 125 mg IV. Diagnosis Primary Impression: COPD with acute exacerbation Additional Impressions: Hyperglycemia Acute kidney injury Admitting Information Admitting Physician Requests: Admit Arcenio Calle MD Apr 30, 2017 20:27
[2017-04-30] MEDS ORDERED: ALBU6.7H INH (20:28)
[2017-04-30] MEDS ORDERED: PRED10 PO (20:28)
[2017-04-30] MEDS ORDERED: GLIP5TAB8 PO (20:28)
[2017-04-30] MEDS ORDERED: DILT31TA PO (20:28)
[2017-04-30] MEDS ORDERED: JANU50TA8 PO (20:28)
[2017-04-30] MEDS ORDERED: methylPREDNISolone SOD SUCC 125 MG/2 ML VIAL IV PUSH ONE (20:30)
[2017-04-30] MEDS ORDERED: SODIUM CHLORIDE 0.9% FLUSH 10 ML FLUSH IVF PRN ×2 (20:30→22:15)
[2017-04-30] MEDS ORDERED: CYMB30CA PO (20:32)
[2017-04-30] MEDS: RESP: ALBUTEROL 2.5 MG/IPRATROPIUM 0.5 MG NEB (SCH) INH (20:40)
--- NOTE | 2017-04-30 21:04 | RADRPT ---
EXAM DATE/TIME: 04/30/2017 20:26 [facility] COMPARISON: CHEST SINGLE AP, September 05, 2016, 20:47. INDICATIONS : Shortness of breath. MEDICAL HISTORY : Hypertension. Diabetes mellitus type II. Chronic obstructive pulmonary disease. SURGICAL HISTORY : None. ENCOUNTER: Initial ACUITY: 1 day PAIN SCORE: 0/10 LOCATION: Bilateral chest FINDINGS: A single view of the chest demonstrates the lungs to be symmetrically aerated without evidence of mas s, infiltrate or effusion. The heart size appears mildly prominent with no perihilar edema. There ar e multiple overlying cardiac leads and oxygen tubing. Osseous structures are intact. CONCLUSION: Cardiomegaly with no evidence of pulmonary edema. Steve Jacobs MD on April 30, 2017 at 21:02 Board Certified Radiologist. This report was verified electronically.
[2017-04-30 21:13] LABS: AUTOMATED NEUTROPHIL # 11.3 TH/MM3 (1.8-7.7); BASOPHIL % 0.2 % (0.0-2.0); HEMATOCRIT 39.3 % (35.0-46.0); HEMO FLAGS DIFF FINAL; LYMPH % 4.1 % (9.0-44.0); LYMPHOCYTE # 0.5 TH/MM3 (1.0-4.8); MEAN CELL VOLUME 96.7 FL (80.0-100.0); MONO % 2.8 % (0.0-8.0); NEUT % 92.9 % (16.0-70.0); PLATELET COUNT 202 TH/MM3 (150-450); RED BLOOD COUNT 4.06 MIL/MM3 (4.00-5.30); WHITE BLOOD COUNT 12.2 TH/MM3 (4.0-11.0)
[2017-04-30 21:24] LABS: APTT (PATIENT) 23.2 SEC (24.3-30.1); INTERNATIONAL NORMALIZED RATIO 0.9 RATIO
[2017-04-30 21:36] LABS: ANION GAP 10 MEQ/L (5-15)
[2017-04-30 21:40] LABS: ALKALINE PHOSPHATASE 110 U/L (45-117); ALT (GPT) 22 U/L (10-53); AST (GOT) 19 U/L (15-37); BICARBONATE 31.3 MEQ/L (21.0-32.0); BLOOD UREA NITROGEN 29 MG/DL (7-18); CHLORIDE 96 MEQ/L (98-107); GLOMERULAR FILTRATION RATE 30 ML/MIN (>89); SODIUM (NA) 137 MEQ/L (136-145); TOTAL BILIRUBIN ADULT 0.6 MG/DL (0.2-1.0)
[2017-04-30] MEDS ORDERED: INSULIN HUMAN REGULAR 1,000 UNITS/10 ML VIAL IV PUSH ONE (22:00)
[2017-04-30] MEDS ORDERED: ONDANSETRON HCL 4 MG/2 ML VIAL IV PRN (22:15)
[2017-04-30] MEDS ORDERED: SODIUM CHLOR 0.9% 1000 ML INJ 1,000 ML IV SCH (22:15)
[2017-04-30] MEDS ORDERED: ACETAMINOPHEN 325 MG TAB PO PRN ×3 (22:15→23:30)
[2017-04-30 22:25] LABS: BLOOD GAS BASE EXCESS 5.7 mmol/L (-2-2); BLOOD GAS CARBOXYHEMOGLOBIN 2.7 % (0-4); BLOOD GAS HCO3 31 mmol/L (22-26); BLOOD GAS METHEMOGLOBIN 0.6 % (0-2); BLOOD GAS O2 HGB SATURATION 91 % (90-100); BLOOD GAS OXYGEN CONTENT 15.4 Vol % (12.0-20.0); BLOOD GAS PCO2 54 mmHg (38-42); BLOOD GAS PO2 71 mmHG (61-120); CRITICAL VALUE YES; DRAW SITE RT RADIAL; LITER FLOW 3 L/M; NUMBER OF ARTERIAL PUNCTURES 1; OXYGEN DEVICE NASAL CANNULA; STAT YES; TEMP CORR TO 98.6; ULNAR PULSE PRESENT
[2017-04-30] MEDS ORDERED: RESP: ALBUTEROL 2.5 MG/IPRATROPIUM 0.5 MG NEB (PRN) NEB (22:30)
[2017-04-30 22:58] VITALS: BP 165/75; PULSE 100; RESP 22; O2SAT 94
[2017-04-30] MEDS ORDERED: SENNOSIDES 8.6 MG TAB PO PRN (23:15)
[2017-04-30] MEDS ORDERED: BISACODYL 10 MG SUPP RECTAL PRN (23:15)
[2017-04-30] MEDS ORDERED: LACTULOSE SYRUP 20 GM/30 ML CUP PO PRN (23:15)
[2017-04-30] MEDS ORDERED: MAGNESIUM HYDROXIDE SUSP 30 ML CUP PO PRN (23:15)
[2017-04-30] MEDS ORDERED: NALOXONE HCL 0.4 MG/ML AMP IV PUSH PRN (23:15)
--- NOTE | 2017-04-30 23:18 | HHI.HP ---
HPI Service [facility] Primary Care Physician Unknown Admission Diagnosis acute exacerbation COPD. Hyperglycemia. Acute kidney injury. Diagnoses: Chief Complaint: Shortness of breath Travel History International Travel<30 Days: No Contact w/Intl Traveler <30 Da: No Traveled to Known Affected Are: No History of Present Illness 71-year-old female with a medical history significant for hypertension, diabetes , oxygen-dependent COPD presents to the emergency room with complaint of worsening shortness of breath. Patient reports shortness of breath has been getting worse for the past 5 days. She endorsed a cough and production of white sputum. No fevers, no chills. No known sick contact. She also reports wheezing. She tried nebulizer treatments at home without significant improvement. She is chronically on prednisone 10 mg daily. Unfortunately she continues to smoke about 4 cigarettes a day. Review of Systems Constitutional: DENIES: Fever, Chills Respiratory: COMPLAINS OF: Cough, Wheezing, Sputum production, Shortness of breath Cardiovascular: DENIES: Chest pain, Palpitations Except as stated in HPI: all other systems reviewed are Neg Past Family Social History Past Medical History Hypertension Type 2 diabetes Oxygen dependent COPD Past Surgical History Hysterectomy Reported Medications Reported Meds & Active Scripts Active Reported Cymbalta DR (Duloxetine HCl) 30 Mg Capdr 30 Mg PO DAILY Proventil Hfa 6.7 GM Inh (Albuterol Sulfate) 90 Mcg/Act Aer 2 Puff INH Q4-6H PRN Glipizide 5 Mg Tab 5 Mg PO DAILY Take 30 minutes before a meal Cardizem (Diltiazem HCl) 30 Mg Tab 10 Mg PO QID Janumet (Sitagliptin-Metformin) 50-1,000 Mg Tab 1 Tab PO BID Prednisone 10 Mg Tab 10 Mg PO DAILY Diovan Hct (Valsartan-Hydrochlorothiazide) 160-12.5 Mg Tab 1 Tab PO DAILY Spiriva Handihaler (Tiotropium Inh) 18 Mcg Cap 18 Mcg INH DAILY 1 capsule = 18 mcg Allergies: Coded Allergies: penicillin G (Unverified Allergy, Severe, Hives, 03/22/17) erythromycin base (Unverified Allergy, Mild, Yeast infection, 03/22/17) Family History Reviewed and is noncontributory. Social History Patient is a lifelong smoker. She continues to smoke, down to 4 cigarettes a day. No alcohol or illicit drug use. Physical Exam Vital Signs Vital Signs Date Time Temp Pulse Resp B/P (MAP) Pulse Ox O2 Delivery O2 Flow Rate FiO2 04/30/17 22:58 100 22 165/75 (105) 94 Nasal Cannula 2.00 04/30/17 20:33 94 Nasal Cannula 2.00 04/30/17 20:21 103 20 95 2.00 04/30/17 20:18 98.2 164/74 (104) Physical Exam GENERAL: Chronically ill-appearing female, mildly short of breath. SKIN: No rashes, ecchymoses or lesions. Cool and dry. HEAD: Atraumatic. Normocephalic. No temporal or scalp tenderness. EYES: Pupils equal round and reactive. Extraocular motions intact. No scleral icterus. No injection or drainage. ENT: Nose without bleeding, purulent drainage or septal hematoma. Throat without erythema, tonsillar hypertrophy or exudate. Uvula midline. Airway patent. NECK: Trachea midline. No JVD or lymphadenopathy. Supple, nontender, no meningeal signs. CARDIOVASCULAR: Regular rate and rhythm without murmurs, gallops, or rubs. RESPIRATORY: Very poor air movement. End expiratory wheezing noted. GASTROINTESTINAL: Abdomen soft, non-tender, nondistended. No hepato-splenomegaly , or palpable masses. No guarding. MUSCULOSKELETAL: Extremities without clubbing, cyanosis, or edema. No joint tenderness, effusion, or edema noted. No calf tenderness. Negative Homans sign bilaterally. NEUROLOGICAL: Awake and alert. Cranial nerves II through XII intact. Motor and sensory grossly within normal limits. Five out of 5 muscle strength in all muscle groups. Normal speech. Laboratory Laboratory Tests Test 04/30/17 20:15 04/30/17 22:18 04/30/17 23:00 White Blood Count 12.2 Red Blood Count 4.06 Hemoglobin 12.2 Hematocrit 39.3 Mean Corpuscular Volume 96.7 Mean Corpuscular Hemoglobin 30.0 Mean Corpuscular Hemoglobin Concent 31.0 Red Cell Distribution Width 15.0 Platelet Count 202 Mean Platelet Volume 10.2 Neutrophils (%) (Auto) 92.9 Lymphocytes (%) (Auto) 4.1 Monocytes (%) (Auto) 2.8 Eosinophils (%) (Auto) 0.0 Basophils (%) (Auto) 0.2 Neutrophils # (Auto) 11.3 Lymphocytes # (Auto) 0.5 Monocytes # (Auto) 0.3 Eosinophils # (Auto) 0.0 Basophils # (Auto) 0.0 CBC Comment DIFF FINAL Differential Comment Prothrombin Time 10.0 Prothromb Time International Ratio 0.9 Activated Partial Thromboplast Time 23.2 Blood Urea Nitrogen 29 Creatinine 1.67 Random Glucose 440 Total Protein 6.2 Albumin 3.1 Calcium Level 9.2 Alkaline Phosphatase 110 Aspartate Amino Transf (AST/SGOT) 19 Alanine Aminotransferase (ALT/SGPT) 22 Total Bilirubin 0.6 Sodium Level 137 Potassium Level 5.0 Chloride Level 96 Carbon Dioxide Level 31.3 Anion Gap 10 Estimat Glomerular Filtration Rate 30 B-Type Natriuretic Peptide 306 Blood Gas Puncture Site RT RADIAL Blood Gas Patient Temperature 98.6 Blood Gas HCO3 31 Blood Gas Base Excess 5.7 Blood Gas Oxygen Saturation 91 Arterial Blood pH 7.38 Arterial Blood Partial Pressure CO2 54 Arterial Blood Partial Pressure O2 71 Arterial Blood Oxygen Content 15.4 Arterial Blood Carboxyhemoglobin 2.7 Arterial Blood Methemoglobin 0.6 Blood Gas Hemoglobin 12.0 Oxygen Delivery Device NASAL CANNULA Blood Gas Liter Flow 3 Date/Time Source Procedure Growth Status 04/30/17 20:30 Nasal Washing Influenza Types A,B Antigen (TAE) - Final NEGATIVE FOR FLU A AND B ANTIGEN.... Complete Result Diagram: 04/30/17201404/30/172014 Imaging Last Impressions Chest X-Ray 04/30/172020 Signed Impressions: Service Date/Time: Sunday, April 30, 2017 20:26 - CONCLUSION: Cardiomegaly with no evidence of pulmonary edema. MD Jose Louisi VTE Risk Assessment Caprini VTE Risk Assessment: Mod/High Risk (score >= 2) Caprini Risk Assessment Model Point Value = 1 Point Value = 2 Point Value = 3 Point Value = 5 Age 41-60 Minor surgery BMI > 25 kg/m2 Swollen legs Varicose veins or History of unexplained or recurrent spontaneous Oral contraceptives or hormone replacement Sepsis (< 1 month) Serious lung disease, including pneumonia (< 1 month) Abnormal pulmonary function Acute myocardial infarction Congestive heart failure (< 1 month) History of inflammatory bowel disease Medical patient at bed rest Age 61-74 Arthroscopic surgery Major open surgery (> 45 min) Laparoscopic surgery (> 45 min) Malignancy Confined to bed (> 72 hours) Immobilizing plaster cast Central venous access Age >= 75 History of VTE Family history of VTE Factor V Leiden Prothrombin [id number] Lupus anticoagulant Anticardiolipin antibodies Elevated serum homocysteine Heparin-induced thrombocytopenia Other congenital or acquired thrombophilia Stroke (< 1 month) Elective arthroplasty Hip, pelvis, or leg fracture Acute spinal cord injury (< 1 month) Prophylaxis Regimen Total Risk Factor Score Risk Level Prophylaxis Regimen 0-1 Low Early ambulation 2 Moderate Order ONE of the following: *Sequential Compression Device (SCD) *Heparin 5000 units SQ BID 3-4 Higher Order ONE of the following medications: *Heparin 5000 units SQ TID *Enoxaparin/Lovenox 40 mg SQ daily (WT < 150 kg, CrCl > 30 mL/min) *Enoxaparin/Lovenox 30 mg SQ daily (WT < 150 kg, CrCl > 10-29 mL/min) *Enoxaparin/Lovenox 30 mg SQ BID (WT < 150 kg, CrCl > 30 mL/min) AND/OR *Sequential Compression Device (SCD) 5 or more Highest Order ONE of the following medications: *Heparin 5000 units SQ TID (Preferred with Epidurals) *Enoxaparin/Lovenox 40 mg SQ daily (WT < 150 kg, CrCl > 30 mL/min) *Enoxaparin/Lovenox 30 mg SQ daily (WT < 150 kg, CrCl > 10-29 mL/min) *Enoxaparin/Lovenox 30 mg SQ BID (WT < 150 kg, CrCl > 30 mL/min) AND *Sequential Compression Device (SCD) Assessment and Plan Problem List: (1) Diabetes ICD Code: E11.9 - Type 2 diabetes mellitus without complications (2) COPD with acute exacerbation ICD Code: J44.1 - Chronic obstructive pulmonary disease with (acute) exacerbation Status: Acute (3) Acute kidney injury ICD Code: N17.9 - Acute kidney failure, unspecified Status: Acute (4) Hyperglycemia ICD Code: R73.9 - Hyperglycemia, unspecified Status: Acute Assessment and Plan 71-year-old female with history significant for hypertension, diabetes, oxygen dependent COPD who continues to smoke admitted with COPD exacerbation, acute kidney injury and uncontrolled blood glucose. COPD exacerbation: Unfortunately the patient continues to smoke. Chest x-ray image reviewed. No evidence of an infectious process. - Continue treatment with IV Solu-Medrol. - Breathing treatments. Spiriva, supplemental oxygen Diabetes: Uncontrolled blood glucose. Patient is on steroids chronically for COPD which is likely contributing to this. - Hold oral hypoglycemic agents - Sliding scale insulin with Accu-Cheks. Acute kidney injury: Likely secondary to dehydration. - Hydrated with IV fluid and recheck labs in a.m. Tobacco dependence: - Patient was counseled on quitting smoking. Nicotine patch ordered. GI prophylaxis: Stool softener PRN constipation. DVT PPx: Heparin Discussed Condition With Dr. Calle. Physician Certification 2 Midnight Certification Type: Admission for Inpatient Services Order for Inpatient Services The services are ordered in accordance with Medicare regulations or non- Medicare payer requirements, as applicable. In the case of services not specified as inpatient-only, they are appropriately provided as inpatient services in accordance with the 2-midnight benchmark. Estimated LOS (days): 2 days is the estimated time the patient will need to remain in the hospital, assuming treatment plan goals are met and no additional complications. Post-Hospital Plan: Home Alena Lynch MD Apr 30, 2017 23:18
[2017-04-30] MEDS: RESP: ALBUTEROL 2.5 MG/IPRATROPIUM 0.5 MG NEB (SCH) NEB (23:21)
[2017-04-30] MEDS: methylPREDNISolone SOD SUCC 40 MG/1 ML VIAL IV PUSH SCH ×2 (23:22→23:25)
[2017-04-30 23:24] LABS: BACTERIA, URINE FEW /hpf; BLOOD, URINE SMALL (NEG); COMMENT (UR) CULTURE INDICATED; CULTURE IF INDICATED CULTURE INDICATED; GLUCOSE,URINE 1000 mg/dL (NEG); KETONE, URINE NEG (NEG); NITRITE,URINE NEG (NEG); PH, URINE 6.5 (5.0-8.5); SQUAMOUS EPITHELIAL CELL URINE 1 /hpf (0-5); URINE COLOR LIGHT-YELLOW (YELLW/STRAW)
[2017-04-30] MEDS ORDERED: RESP: ALBUTEROL 2.5 MG/IPRATROPIUM 0.5 MG NEB (SCH) INH ONE (23:30)
[2017-05-01] VITALS (12 sets, daily range): BP systolic 148–167; BP diastolic 67–77; PULSE 93–107; RESP 18–22; TEMP 97.6–98.2; O2SAT 93–99
[2017-05-01] MEDS ORDERED: GLUCAGON 1 MG/ML VIAL OTHER PRN (02:00)
[2017-05-01] MEDS ORDERED: LORazepam 0.5 MG TAB PO PRN (02:00)
[2017-05-01] MEDS ORDERED: DEXTROSE 50% IN WATER 50 ML VIAL(D50) IV PUSH PRN (02:00)
[2017-05-01] MEDS ORDERED: INSULIN ASPART 1,000 UNITS/10 ML VIAL SQ ONE (02:00)
[2017-05-01] MEDS: RESP: ALBUTEROL 2.5 MG/IPRATROPIUM 0.5 MG NEB (SCH) NEB ×6 (04:26→23:48)
[2017-05-01] MEDS: NICOTINE 7 MG/24 HR PATCH T-DERMAL SCH (06:26)
[2017-05-01] MEDS: methylPREDNISolone SOD SUCC 40 MG/1 ML VIAL IV PUSH SCH ×3 (06:27→17:22)
[2017-05-01] MEDS: INSULIN ASPART SUPPLEMENTAL SCALE SQ SCH ×4 (08:28→21:38)
[2017-05-01] MEDS: DILTIAZEM HCL 30 MG TAB PO SCH ×4 (08:30→20:47)
[2017-05-01] MEDS: SODIUM CHLORIDE 0.9% FLUSH 10 ML FLUSH IV FLUSH SCH ×2 (08:30→20:48)
[2017-05-01] MEDS: DULoxetine HCl DR 30 MG CAP PO SCH (08:31)
[2017-05-01] MEDS: VALSARTAN 160 MG TAB PO SCH (08:31)
[2017-05-01] MEDS: HYDROCHLOROTHIAZIDE 12.5 MG CAP PO SCH (08:32)
[2017-05-01] MEDS: HEPARIN SODIUM - SQ 10,000 UNITS/ML VIAL SQ SCH ×2 (08:33→20:48)
[2017-05-01] MEDS: TIOTROPIUM BROMIDE 18 MCG INH INH SCH (08:33)
[2017-05-01] MEDS ORDERED: NON-FORMULARY DRUG (Valsartan-Hydrochlorothiazide (Diovan Hct) 1 TAB) PO SCH (09:00)
[2017-05-01] MEDS ORDERED: cloNIDine HCL 0.1 MG TAB PO PRN (09:45)
[2017-05-01] MEDS ORDERED: INSULIN DETEMIR 100 UNITS/ML VIAL SQ SCH ×2 (10:00→21:00)
--- NOTE | 2017-05-01 10:15 | HHI.PR ---
Subjective Remarks Follow up on COPD exacerbation. Patient reports her breathing is some better today. Less cough. Denies any fever or chills. Denies any chest pain. Denies any N/V or abdominal pain. States she sees Dr. Mcdowell as outpatient and has an appointment with him next week. She denies any heart problems. Denies having a previous echocardiogram. She states she has no help at home. She has chronic respiratory insufficiency and uses 2L of oxygen at home. Objective Vitals Vital Signs Date Time Temp Pulse Resp B/P (MAP) Pulse Ox O2 Delivery O2 Flow Rate FiO2 05/01/17 08:14 93 Nasal Cannula 2.00 05/01/17 08:03 97.7 96 22 164/71 (102) 95 05/01/17 08:02 100 05/01/17 06:30 93 05/01/17 04:00 98.0 102 18 156/76 (102) 94 05/01/17 00:00 97.8 107 18 148/67 (94) 95 04/30/17 23:59 04/30/17 22:58 100 22 165/75 (105) 94 Nasal Cannula 2.00 04/30/17 20:33 94 Nasal Cannula 2.00 04/30/17 20:21 103 20 95 2.00 04/30/17 20:18 98.2 164/74 (104) I/O 04/30/17 04/30/17 04/30/17 05/01/17 05/01/17 05/01/17 07:00 15:00 23:00 07:00 15:00 23:00 Intake Total 480 ml Output Total 400 ml Balance 80 ml Intake Oral 480 ml Output Urine Total 400 ml # Voids 2 Result Diagram: 04/30/17201404/30/172014 Imaging Last Impressions Chest X-Ray 04/30/172020 Signed Impressions: Service Date/Time: Sunday, April 30, 2017 20:26 - CONCLUSION: Cardiomegaly with no evidence of pulmonary edema. Steve Jacobs MD Objective Remarks GENERAL: Well-nourished, well-developed obese patient. Awake and alert. Patient with some obvious dyspnea speaking sentences. SKIN: Warm and dry. No rash. HEAD: Normocephalic. Atraumatic. EYES: EOMI. No scleral icterus. No injection or drainage. ENT: No nasal bleeding or discharge. Mucous membranes pink and moist. Wearing NC at 2L. NECK: Supple. Trachea midline. CARDIOVASCULAR: Tachycardic. S1, S2 noted. No murmur appreciated. RESPIRATORY: Pursed lip breathing. Little air movement appreciated. No wheezing noted. GASTROINTESTINAL: Abdomen soft, non-tender, nondistended. Normoactive bowel sounds x4. MUSCULOSKELETAL: No obvious deformities. Extremities without clubbing or cyanosis. 2+ BLE pitting edema. NEUROLOGICAL: Awake and alert. Able to move all extremities. Normal speech but with some dyspnea speaking sentences. PSYCHIATRIC: Appropriate mood and affect; insight and judgment normal. Medications and IVs Current Medications Medications (Trade) Dose Ordered Sig/Bonnie Route Start Time Stop Time Status Last Admin (Zofran Inj) 4 mg Q6H PRN IV 04/30/17 22:15 (NS Flush) 2 ml BID IV FLUSH 05/01/17 09:00 05/01/17 08:30 (NS Flush) 2 ml UNSCH PRN IVF 04/30/17 22:15 (Duoneb Neb) 1 ampule Q4HR NEB NEB 05/01/17 00:00 05/01/17 08:10 (Duoneb Neb) 1 ampule Q2HR NEB PRN NEB 04/30/17 22:30 (SoluMEDROL INJ) 40 mg Q6HR IV PUSH 05/01/17 00:00 05/01/17 06:27 (Cardizem) 10 mg QID PO 05/01/17 09:00 05/01/17 08:30 (Cymbalta Dr) 30 mg DAILY PO 05/01/17 09:00 05/01/17 08:31 (Spiriva Inh) 18 mcg DAILY INH 05/01/17 09:00 05/01/17 08:33 (Tylenol) 650 mg Q4H PRN PO 04/30/17 23:15 (Heparin Inj) 5,000 units Q12HR SQ 05/01/17 09:00 05/01/17 08:33 (Narcan Inj) 0.4 mg UNSCH PRN IV PUSH 04/30/17 23:15 (Milk Of Magnesia Liq) 30 ml Q12H PRN PO 04/30/17 23:15 (Senokot) 17.2 mg Q12H PRN PO 04/30/17 23:15 (Dulcolax Supp) 10 mg DAILY PRN RECTAL 04/30/17 23:15 (Lactulose Liq) 30 ml DAILY PRN PO 04/30/17 23:15 (Diovan) 160 mg DAILY PO 05/01/17 09:00 05/01/17 08:31 (Microzide) 12.5 mg DAILY PO 05/01/17 09:00 05/01/17 08:32 (Tylenol) 650 mg Q4H PRN PO 04/30/17 23:30 (D50w (Vial) Inj) 50 ml UNSCH PRN IV PUSH 05/01/17 02:00 (Glucagon Inj) 1 mg UNSCH PRN OTHER 05/01/17 02:00 (NovoLOG SUPPLEMENTAL SCALE) 1 ACHS SLIDING SCALE SQ 05/01/17 08:00 05/01/17 08:28 (Habitrol 7 Mg Patch.24 Hr) 1 patch DAILY@0600 T-DERMAL 05/01/17 06:00 05/01/17 06:26 Miscellaneous Information 1 DAILY@0600 T-DERMAL 05/02/17 06:00 (Catapres) 0.1 mg Q6H PRN PO 05/01/17 09:45 (Levemir Inj) 5 units Q12HR SQ 05/01/17 10:00 A/P Problem List: (1) Diabetes ICD Code: E11.9 - Type 2 diabetes mellitus without complications (2) COPD with acute exacerbation ICD Code: J44.1 - Chronic obstructive pulmonary disease with (acute) exacerbation Status: Acute (3) Acute kidney injury ICD Code: N17.9 - Acute kidney failure, unspecified Status: Acute (4) Hyperglycemia ICD Code: R73.9 - Hyperglycemia, unspecified Status: Acute Assessment and Plan 71-year-old female with history significant for hypertension, diabetes, oxygen dependent COPD who continues to smoke admitted with COPD exacerbation, acute kidney injury and uncontrolled blood glucose. COPD exacerbation: Chronic respiratory insufficiency: - Unfortunately the patient continues to smoke. Chest x-ray image reviewed. Cardiomegaly with no infectious process appreciated. - Influenza negative - Continue treatment with IV Solu-Medrol. - Consult Dr. Mcdowell who patient follows with as outpatient - Continue Breathing treatments - Continue Spiriva, supplemental oxygen - Consult case management - Consult PT - Continue to monitor respiratory status Diabetes: Uncontrolled blood glucose. Patient is on steroids chronically for COPD which is likely contributing to this. - Hold oral hypoglycemic agents - continue accuchecks. BS still uncontrolled at 386. - Begin Levemir 5u BID - Sliding scale insulin - obtain HgbA1c Acute kidney injury: Likely secondary to dehydration. - Hydrated with IV fluid - avoid nephrotoxic agents - continue to hold oral hypoglycemics - today's labs pending HTN - Continue patient on home Cardizem 10 mg 4 times a day, valsartan 160 mg daily and hydrochlorothiazide 12.5 mg daily - Monitor BP BLE edema - D/C IVF - BNP mildly elevated at 306. Previous BNP 92 09/05/16 - Obtain echocardiogram - Check TSH level Leukocytosis - Likely secondary to chronic steroid use - Patient is afebrile. Chest x-ray negative for infectious process. UA questionable for UTI. - Today's labs pending ?UTI - Patient's asymptomatic - Follow up on urine culture results Tobacco dependence: - Patient was counseled on quitting smoking. - Continue Nicotine patch GI prophylaxis: Stool softener PRN constipation. DVT PPx: Heparin Discussed with patient and Dr. Brown Attending Statement Patient seen and examined. Agree with above. Patient states that she feels a little better today, but appears short of breath. Significant wheezing on exam. Per respiratory therapy, patient has been lethargic at times this morning. Continue oxygen, steroids, nebs. Consult patient's cna hha. Sherin Castillo May 01, 2017 10:15 Walt Brown MD May 01, 2017 11:09
[2017-05-01 10:34] LABS: AUTOMATED NEUTROPHIL # 11.7 TH/MM3 (1.8-7.7); HEMATOCRIT 38.1 % (35.0-46.0); HEMO FLAGS DIFF FINAL; LYMPH % 2.4 % (9.0-44.0); LYMPHOCYTE # 0.3 TH/MM3 (1.0-4.8); MEAN CELL VOLUME 97.3 FL (80.0-100.0); MEAN CORPUSCULAR HEMOGLOBIN 30.2 PG (27.0-34.0); MEAN CORPUSCULAR HGB CONC 31.1 % (32.0-36.0); MONO % 0.9 % (0.0-8.0); NEUT % 96.7 % (16.0-70.0); PLATELET COUNT 191 TH/MM3 (150-450); RED BLOOD COUNT 3.91 MIL/MM3 (4.00-5.30); RED CELL DISTRIBUTION WIDTH 15.2 % (11.6-17.2); WHITE BLOOD COUNT 12.1 TH/MM3 (4.0-11.0)
[2017-05-01] MEDS ORDERED: LORA-373 PO (10:42)
[2017-05-01 11:05] LABS: BICARBONATE 31.1 MEQ/L (21.0-32.0); POTASSIUM 4.8 MEQ/L (3.5-5.1)
[2017-05-01 14:34] LABS: HEMOGLOBIN A1a 1.4 %; HEMOGLOBIN A1b 3.4 %; HEMOGLOBIN Ao 75.5 %; HEMOGLOBIN P3 5.9 %
[2017-05-01] MEDS: INSULIN DETEMIR 100 UNITS/ML VIAL SQ SCH (21:38)
[2017-05-02] VITALS (9 sets, daily range): BP systolic 133–160; BP diastolic 60–78; PULSE 83–104; RESP 18–20; TEMP 97.4–98.5; O2SAT 91–98
[2017-05-02] MEDS: methylPREDNISolone SOD SUCC 40 MG/1 ML VIAL IV PUSH SCH ×5 (00:38→23:48)
[2017-05-02] MEDS: RESP: ALBUTEROL 2.5 MG/IPRATROPIUM 0.5 MG NEB (SCH) NEB ×5 (03:16→19:41)
--- NOTE | 2017-05-02 05:32 | MB ---
cc: GABRIEL ARGUELLES DATE OF CONSULTATION 05/01/[address] Alena Lynch REASON FOR CONSULTATION COPD exacerbation. HISTORY OF PRESENT ILLNESS Mrs. Montano is a pleasant 71-year-old female with a longstanding history of COPD. She is oxygen dependent, uses oxygen 2-3 units nasal cannula, also takes prednisone 10 mg per day on a regular basis. She started getting worse over the last four days or so. She has been having increasing shortness breath, wheezing, cough, small amount of sputum production. She did not have fever or chills. No night sweats, no nausea or vomiting. She has a long history of smoking which she cut down to 6-7 cigarettes and she claims to have quit last week. She was evaluated in the hospital. Her CBC showed a WBC of 12.1, hemoglobin 11.8, hematocrit 38.1, MCV 97, platelet count 191. Her sodium was 136, potassium 4.8, chloride 98, CO2 31, BUN 29, creatinine 1.19, glucose 462. Blood gas - pH 7.38, pCO2 54, pO2 71, bicarb of 71, saturation 91%. Her chest x-ray shows no cardiomegaly with no acute pulmonary edema. PAST MEDICAL HISTORY 1. CHF. 2. COPD. 3. Hypertension. 4. Diabetes mellitus. 5. History of hysterectomy. CURRENT MEDICATIONS 1. Insulin. 2. Clonidine p.r.n. 3. Heparin 5000 q. 12 hours. 4. Hydrochlorothiazide 12.5 mg daily. 5. Solu-Medrol 40 mg q. 6 hours. 6. Albuterol/Atrovent nebulizer treatment. 7. Nicotine patch. 8. Diltiazem 10 mg four times a day. ALLERGIES AZITHROMYCIN. PENICILLIN. SOCIAL HISTORY She is a . 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 A long history of smoking, cut down to 6 cigarettes. No alcohol abuse. FAMILY HISTORY She has two children. She lives alone. REVIEW OF SYSTEMS She walks only short distance inside the house. She has a significant other. She has a living with the significant for the last 31 years. Denies any weight loss. No malignancy. No DVT or pulmonary embolus. PHYSICAL EXAMINATION GENERAL: An obese female, mildly short of blood. VITAL SIGNS: Blood pressure 167/77, heart rate 97, respirations 22, temperature 97.6. HEENT EXAMINATION: Pupils are equal and react to light. She has bilateral cataracts. Oral mucosa and nasal mucosa normal. NECK: Supple. JVP not raised. CHEST: She has expiratory rhonchi. CV: S1 and S2 normal. ABDOMEN: Soft, nondistended. Bowel sounds are present. EXTREMITIES: 1+ pedal edema. 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 No focal deficit. IMPRESSION 1. COPD exacerbation. 2. Diabetes mellitus. 3. Hypertension. 4. Mild respiratory acidosis. 5. Nicotine use. PLAN 1. I advised her strongly to quit smoking. 1. Will give her aerosol treatments, albuterol and Atrovent, IV Solu-Medrol. 1. Monitor her blood sugar. 2. Supplemental her oxygen. 3. She is on subcu Lovenox, subcu heparin. 4. Continue hydrochlorothiazide. 5. Monitor her electrolytes. Further treatment will depend on her course in the hospital. Thank you, Dr. Alena Lynch for this consult. MD UBALDO Pugh/SSB /7:35 PM /5:10 AM
[2017-05-02] MEDS: REMOVE OLD PATCH T-DERMAL SCH (06:00)
[2017-05-02] MEDS: NICOTINE 7 MG/24 HR PATCH T-DERMAL SCH (06:40)
[2017-05-02] MEDS: VALSARTAN 160 MG TAB PO SCH (08:48)
[2017-05-02] MEDS: DILTIAZEM HCL 30 MG TAB PO SCH ×4 (08:48→21:52)
[2017-05-02] MEDS: DULoxetine HCl DR 30 MG CAP PO SCH (08:48)
[2017-05-02] MEDS: HYDROCHLOROTHIAZIDE 12.5 MG CAP PO SCH (08:48)
[2017-05-02] MEDS: HEPARIN SODIUM - SQ 10,000 UNITS/ML VIAL SQ SCH ×2 (08:49→21:52)
[2017-05-02] MEDS: INSULIN DETEMIR 100 UNITS/ML VIAL SQ SCH ×2 (08:49→21:53)
[2017-05-02] MEDS: INSULIN ASPART SUPPLEMENTAL SCALE SQ SCH ×4 (08:49→21:53)
[2017-05-02] MEDS: TIOTROPIUM BROMIDE 18 MCG INH INH SCH (08:51)
[2017-05-02] MEDS: SODIUM CHLORIDE 0.9% FLUSH 10 ML FLUSH IV FLUSH SCH ×2 (08:52→21:00)
--- NOTE | 2017-05-02 14:12 | HHI.PR ---
Subjective Remarks Follow up COPD. Still with dyspnea. Mild cough. No chest pain. Objective Vitals Vital Signs Date Time Temp Pulse Resp B/P (MAP) Pulse Ox O2 Delivery O2 Flow Rate FiO2 05/02/17 12:17 97.8 97 18 138/60 (86) 94 05/02/17 11:36 96 05/02/17 08:26 98.0 89 20 160/75 (103) 98 05/02/17 08:10 97 Nasal Cannula 2.00 05/02/17 04:00 97.4 89 18 141/69 (93) 93 05/02/17 00:00 97.9 87 20 158/78 (104) 96 05/01/17 20:28 95 Nasal Cannula 2.00 05/01/17 20:01 104 05/01/17 20:00 98.2 96 18 158/74 (102) 97 05/01/17 15:54 95 Nasal Cannula 2.00 05/01/17 15:46 97.6 97 20 167/77 (107) 99 I/O 05/01/17 05/01/17 05/01/17 05/02/17 05/02/17 05/02/17 07:00 15:00 23:00 07:00 15:00 23:00 Intake Total 480 ml 724 ml Output Total 400 ml Balance 80 ml 724 ml Intake Oral 480 ml 480 ml IV Total 244 ml Output Urine Total 400 ml # Voids 2 3 1 3 Result Diagram: 05/01/17 0942 05/01/17 0942 Imaging Last Impressions Chest X-Ray 04/30/172020 Signed Impressions: Service Date/Time: Sunday, April 30, 2017 20:26 - CONCLUSION: Cardiomegaly with no evidence of pulmonary edema. Steve Jacobs MD Procedures None Urinary Catheter: No Vascular Central Line Catheter: No A/P Problem List: (1) Diabetes ICD Code: E11.9 - Type 2 diabetes mellitus without complications (2) COPD with acute exacerbation ICD Code: J44.1 - Chronic obstructive pulmonary disease with (acute) exacerbation Status: Acute (3) Acute kidney injury ICD Code: N17.9 - Acute kidney failure, unspecified Status: Acute (4) Hyperglycemia ICD Code: R73.9 - Hyperglycemia, unspecified Status: Acute Assessment and Plan 1. COPD exacerbation, chronic respiratory failure: Patient continues to smoke. She has been counseled. Appreciate pulmonology recommendations. Continue DuoNeb' s, Spiriva, supplemental oxygen. Taper SoluMedrol. 2. Diabetes mellitus: Poorly controlled. Glucose is elevated secondary to steroids. Continue Levemir. Monitor Accu-Cheks and cover with sliding scale insulin. 3. Acute kidney injury: Likely secondary to dehydration. Improved with IV fluids. 4. Hypertension: Continue Cardizem, valsartan, HCTZ. 5. Bilateral lower extremity edema: Echocardiogram pending. BNP mildly elevated. 6. Leukocytosis: Likely secondary to chronic steroid use. 7. Questionable UTI: The patient is asymptomatic. Urine culture is growing Streptococcus. 8. Tobacco abuse: Counseled quit smoking. 9. DVT prophylaxis: Heparin. Discharge Planning Anticipate discharge home tomorrow if stable. Walt Brown MD May 02, 2017 14:12
--- NOTE | 2017-05-02 17:22 | ECHRPT ---
Indication: HEART FAILURE CONCLUSIONS The left ventricular systolic function is normal with an estimated ejection fraction in the range of 55-60%. Normal left ventricular size. Mild concentric left ventricular hypertrophy. No regional wall motion abnormalities are present. Trace mitral valve regurgitation. The aortic valve is not well visualized. Pulmonary arterial systolic pressure could not be estimated due to an insufficient tricuspid valve regurgitation doppler jet for measurement. The pulmonary valve is not well visualized. BP: 164 / 71 HR: 96 Rhythm: Sinus MEASUREMENTS (Male / Female) Normal Values Technical Quality:Very technically difficult study 2D ECHO LV Diastolic Diameter PLAX 3.7 cm 4.2 - 5.9 / 3.9 - 5.3 cm LV Systolic Diameter PLAX 2.8 cm IVS Diastolic Thickness 1.2 cm 0.6 - 1.0 / 0.6 - 0.9 cm LVPW Diastolic Thickness 1.3 cm 0.6 - 1.0 / 0.6 - 0.9 cm LV Relative Wall Thickness 0.7 RV Internal Dim ED PLAX 2.4 cm LVOT Diameter 2.0 cm LA Systolic Diameter LX 4.5 cm 3.0 - 4.0 / 2.7 - 3.8 cm LV Ejection Fraction MOD 4C 47.1 % LV Cardiac Index MOD 4C 3311.9 cm/minm LV Ejection Fraction 4C AL 51.1 % LV Cardiac Index 4C AL 3722.8 cm/minm M-MODE Aortic Root Diameter MM 2.8 cm AV Cusp Separation MM 2.2 cm DOPPLER AV Peak Velocity 174.0 cm/s AV Peak Gradient 12.1 mmHg LVOT Peak Velocity 114.0 cm/s LVOT Peak Gradient 5.2 mmHg AV Area Cont Eq pk 2.1 cm MV Area PHT 4.6 cm Mitral E Point Velocity 94.8 cm/s Mitral A Point Velocity 110.0 cm/s Mitral E to A Ratio 0.9 LV E' Lateral Velocity 7.0 cm/s Mitral E to LV E' Lateral Ratio 13.5 LV E' Septal Velocity 4.8 cm/s Mitral E to LV E' Septal Ratio 19.8 PV Peak Velocity 81.4 cm/s PV Peak Gradient 2.7 mmHg FINDINGS LEFT VENTRICLE The left ventricular systolic function is normal with an estimated ejection fraction in the range of 55-60%. Normal left ventricular size. Mild concentric left ventricular hypertrophy. No regional wall motion abnormalities are present. RIGHT VENTRICLE Normal right ventricular size and systolic function. LEFT ATRIUM The left atrial size is normal. RIGHT ATRIUM The right atrial size is normal. ATRIAL SEPTUM Normal atrial septal thickness without atrial level shunting by limited color doppler interrogation. AORTA The aortic root and proximal ascending aorta are normal in size on limited imaging. MITRAL VALVE Trace mitral valve regurgitation. AORTIC VALVE The aortic valve is not well visualized. TRICUSPID VALVE Pulmonary arterial systolic pressure could not be estimated due to an insufficient tricuspid valve regurgitation doppler jet for measurement. PULMONARY VALVE The pulmonary valve is not well visualized. VESSELS The inferior vena cava is normal in size. PERICARDIUM No pericardial effusion. Tariq Harris MD, FACC (Electronically Signed) Final Date:02 May 2017 17:21
--- NOTE | 2017-05-02 18:46 | HHI.PR ---
Subjective Remarks 71 YOWF with COPD Exac, 02 dependant Breathing better Cough, not able to expactorate no fever No CP Objective Vital Signs Vital Signs Date Time Temp Pulse Resp B/P (MAP) Pulse Ox O2 Delivery O2 Flow Rate FiO2 05/02/17 16:05 97.4 83 20 133/63 (86) 97 05/02/17 12:17 97.8 97 18 138/60 (86) 94 05/02/17 11:36 96 05/02/17 08:26 98.0 89 20 160/75 (103) 98 05/02/17 08:10 97 Nasal Cannula 2.00 05/02/17 04:00 97.4 89 18 141/69 (93) 93 05/02/17 00:00 97.9 87 20 158/78 (104) 96 05/01/17 20:28 95 Nasal Cannula 2.00 05/01/17 20:01 104 05/01/17 20:00 98.2 96 18 158/74 (102) 97 I/O 05/01/17 05/01/17 05/01/17 05/02/17 05/02/17 05/02/17 07:00 15:00 23:00 07:00 15:00 23:00 Intake Total 480 ml 724 ml 720 ml Output Total 400 ml Balance 80 ml 724 ml 720 ml Intake Oral 480 ml 480 ml 720 ml IV Total 244 ml Output Urine Total 400 ml # Voids 2 3 1 5 Result Diagram: 05/01/17 0942 05/01/17 0942 Objective Remarks GENERAL: obese WF, mild sob SKIN: Warm and dry. HEAD: Normocephalic. EYES: No scleral icterus. No injection or drainage. NECK: Supple, trachea midline. No JVD or lymphadenopathy. CARDIOVASCULAR: Regular rate and rhythm without murmurs, gallops, or rubs. RESPIRATORY: Breath sounds equal bilaterally. No accessory muscle use. End Exp rhonchi GASTROINTESTINAL: Abdomen soft, non-tender, nondistended. MUSCULOSKELETAL: No cyanosis, or edema. BACK: Nontender without obvious deformity. No CVA tenderness. A/P Assessment and Plan COPD exac HTN DM Resp acidosis nicotine use PLAN: Aerosol nebs Cont Steroids supplement 02 Acapella Check Echo Shalom Yeboah MD May 02, 2017 18:46
[2017-05-02] MEDS ORDERED: PILL SPLITTER OTHER PRN (19:30)
[2017-05-03] VITALS (7 sets, daily range): BP systolic 128–171; BP diastolic 60–78; PULSE 86–100; RESP 17–18; TEMP 98–98.5; O2SAT 93–96
[2017-05-03] MEDS: RESP: ALBUTEROL 2.5 MG/IPRATROPIUM 0.5 MG NEB (SCH) NEB ×5 (03:28→15:20)
[2017-05-03] MEDS: methylPREDNISolone SOD SUCC 40 MG/1 ML VIAL IV PUSH SCH ×2 (06:15→12:51)
[2017-05-03] MEDS: NICOTINE 7 MG/24 HR PATCH T-DERMAL SCH (06:16)
[2017-05-03] MEDS: REMOVE OLD PATCH T-DERMAL SCH (06:18)
[2017-05-03 07:30] LABS: AUTOMATED NEUTROPHIL # 11.4 TH/MM3 (1.8-7.7); BASOPHIL % 0.1 % (0.0-2.0); EOSINOPHIL % 0.1 % (0.0-4.0); HEMATOCRIT 37.8 % (35.0-46.0); LYMPH % 1.7 % (9.0-44.0); LYMPHOCYTE # 0.2 TH/MM3 (1.0-4.8); MEAN CELL VOLUME 97.2 FL (80.0-100.0); MEAN CORPUSCULAR HEMOGLOBIN 30.4 PG (27.0-34.0); MEAN CORPUSCULAR HGB CONC 31.2 % (32.0-36.0); MONO % 2.7 % (0.0-8.0); NEUT % 95.4 % (16.0-70.0); PLATELET COUNT 102 TH/MM3 (150-450); RED BLOOD COUNT 3.89 MIL/MM3 (4.00-5.30); RED CELL DISTRIBUTION WIDTH 15.2 % (11.6-17.2); WHITE BLOOD COUNT 11.9 TH/MM3 (4.0-11.0)
[2017-05-03 07:59] LABS: BICARBONATE 27.6 MEQ/L (21.0-32.0); POTASSIUM 5.1 MEQ/L (3.5-5.1)
[2017-05-03] MEDS: INSULIN ASPART SUPPLEMENTAL SCALE SQ SCH ×3 (08:00→17:00)
[2017-05-03] MEDS: VALSARTAN 160 MG TAB PO SCH (08:17)
[2017-05-03] MEDS: HYDROCHLOROTHIAZIDE 12.5 MG CAP PO SCH (08:18)
[2017-05-03] MEDS: DILTIAZEM HCL 30 MG TAB PO SCH ×3 (08:18→17:30)
[2017-05-03] MEDS: DULoxetine HCl DR 30 MG CAP PO SCH (08:19)
[2017-05-03] MEDS: INSULIN DETEMIR 100 UNITS/ML VIAL SQ SCH (08:19)
[2017-05-03 08:20] LABS: HEMO FLAGS AUTO DIFF
[2017-05-03 08:21] LABS: SCAN/DIFF AUTO DIFF CONFIRMED
[2017-05-03] MEDS: HEPARIN SODIUM - SQ 10,000 UNITS/ML VIAL SQ SCH (08:23)
[2017-05-03] MEDS: TIOTROPIUM BROMIDE 18 MCG INH INH SCH (08:50)
[2017-05-03] MEDS: SODIUM CHLORIDE 0.9% FLUSH 10 ML FLUSH IV FLUSH SCH (08:55)
[2017-05-03] MEDS ORDERED: LORA-373 PO (14:08)
[2017-05-03] MEDS ORDERED: NITR100C4 PO (14:08)
[2017-05-03] MEDS ORDERED: PRED20 PO (14:08)
[2017-05-03] MEDS ORDERED: DILT31TA PO (14:08)
[2017-05-03] MEDS ORDERED: LEVEMIR SQ (14:08)
--- NOTE | 2017-05-03 14:09 | HHI.DCPOC ---
Discharge Care Plan Diagnosis: (1) Diabetes (2) COPD with acute exacerbation (3) Acute kidney injury (4) Hyperglycemia (5) UTI (urinary tract infection) Goals to Promote Your Health * To prevent worsening of your condition and complications * To maintain your health at the optimal level Directions to Meet Your Goals Take your medications as prescribed Follow your dietary instruction Follow activity as directed Keep your appointments as scheduled Take your immunizations and boosters as scheduled If your symptoms worsen call your PCP, if no PCP go to Urgent Care Center or Emergency Room Smoking is Dangerous to Your Health. Avoid second hand smoke Call the 24-hour hour crisis hotline for domestic abuse at Walt Brown MD May 03, 2017 14:09
--- NOTE | 2017-05-03 14:12 | HHI.DS ---
Discharge Summary Admission Date Apr 30, 2017 at 22:54 Discharge Date: May 03, 2017 Admitting Diagnosis acute exacerbation COPD. Hyperglycemia. Acute kidney injury. (1) Diabetes ICD Code: E11.9 - Type 2 diabetes mellitus without complications (2) COPD with acute exacerbation ICD Code: J44.1 - Chronic obstructive pulmonary disease with (acute) exacerbation Status: Acute (3) Acute kidney injury ICD Code: N17.9 - Acute kidney failure, unspecified Status: Acute (4) Hyperglycemia ICD Code: R73.9 - Hyperglycemia, unspecified Status: Acute Procedures None Brief History - From Admission 71-year-old female with a medical history significant for hypertension, diabetes , oxygen-dependent COPD presents to the emergency room with complaint of worsening shortness of breath. Patient reports shortness of breath has been getting worse for the past 5 days. She endorsed a cough and production of white sputum. No fevers, no chills. No known sick contact. She also reports wheezing. She tried nebulizer treatments at home without significant improvement. She is chronically on prednisone 10 mg daily. Unfortunately she continues to smoke about 4 cigarettes a day. CBC/BMP: 05/03/17 0640 05/03/17 0640 Significant Findings Laboratory Tests Test 04/30/17 20:15 04/30/17 22:18 04/30/17 23:00 05/01/17 09:42 White Blood Count 12.2 TH/MM3 (4.0-11.0) 12.1 TH/MM3 (4.0-11.0) Mean Corpuscular Hemoglobin Concent 31.0 % (32.0-36.0) 31.1 % (32.0-36.0) Neutrophils (%) (Auto) 92.9 % (16.0-70.0) 96.7 % (16.0-70.0) Lymphocytes (%) (Auto) 4.1 % (9.0-44.0) 2.4 % (9.0-44.0) Neutrophils # (Auto) 11.3 TH/MM3 (1.8-7.7) 11.7 TH/MM3 (1.8-7.7) Lymphocytes # (Auto) 0.5 TH/MM3 (1.0-4.8) 0.3 TH/MM3 (1.0-4.8) Activated Partial Thromboplast Time 23.2 SEC (24.3-30.1) Blood Urea Nitrogen 29 MG/DL (7-18) 29 MG/DL (7-18) Creatinine 1.67 MG/DL (0.50-1.00) 1.19 MG/DL (0.50-1.00) Random Glucose 440 MG/DL (74-106) 462 MG/DL (74-106) Total Protein 6.2 GM/DL (6.4-8.2) Albumin 3.1 GM/DL (3.4-5.0) Chloride Level 96 MEQ/L (98-107) Estimat Glomerular Filtration Rate 30 ML/MIN (>89) 45 ML/MIN (>89) B-Type Natriuretic Peptide 306 PG/ML (0-100) 381 PG/ML (0-100) Blood Gas HCO3 31 mmol/L (22-26) Blood Gas Base Excess 5.7 mmol/L (-2-2) Arterial Blood Partial Pressure CO2 54 mmHg (38-42) Urine Turbidity HAZY (CLEAR) Urine Glucose (UA) 1000 mg/dL (NEG) Urine Occult Blood SMALL (NEG) Urine Leukocyte Esterase LARGE (NEG) Urine RBC 7 /hpf (0-3) Urine WBC Clumps RARE (NONE) Urine Bacteria FEW /hpf (NONE) Red Blood Count 3.91 MIL/MM3 (4.00-5.30) Hemoglobin A1c 9.5 % (4.3-6.0) Thyroid Stimulating Hormone 3rd Gen 0.215 uIU/ML (0.358-3.740) Test 05/03/17 06:40 White Blood Count 11.9 TH/MM3 (4.0-11.0) Red Blood Count 3.89 MIL/MM3 (4.00-5.30) Mean Corpuscular Hemoglobin Concent 31.2 % (32.0-36.0) Platelet Count 102 TH/MM3 (150-450) Neutrophils (%) (Auto) 95.4 % (16.0-70.0) Lymphocytes (%) (Auto) 1.7 % (9.0-44.0) Neutrophils # (Auto) 11.4 TH/MM3 (1.8-7.7) Lymphocytes # (Auto) 0.2 TH/MM3 (1.0-4.8) Blood Urea Nitrogen 35 MG/DL (7-18) Random Glucose 278 MG/DL (74-106) Sodium Level 135 MEQ/L (136-145) Estimat Glomerular Filtration Rate 60 ML/MIN (>89) Imaging Last Impressions Chest X-Ray 04/30/172020 Signed Impressions: Service Date/Time: Sunday, April 30, 2017 20:26 - CONCLUSION: Cardiomegaly with no evidence of pulmonary edema. Steve Jacobs MD PE at Discharge GENERAL: Well-nourished, well-developed obese patient. Awake and alert. Patient with some obvious dyspnea speaking sentences. SKIN: Warm and dry. No rash. HEAD: Normocephalic. Atraumatic. EYES: EOMI. No scleral icterus. No injection or drainage. ENT: No nasal bleeding or discharge. Mucous membranes pink and moist. Wearing NC at 2L. NECK: Supple. Trachea midline. CARDIOVASCULAR: Tachycardic. S1, S2 noted. No murmur appreciated. RESPIRATORY: Pursed lip breathing. Little air movement appreciated. No wheezing noted. GASTROINTESTINAL: Abdomen soft, non-tender, nondistended. Normoactive bowel sounds x4. MUSCULOSKELETAL: No obvious deformities. Extremities without clubbing or cyanosis. 2+ BLE pitting edema. NEUROLOGICAL: Awake and alert. Able to move all extremities. Normal speech but with some dyspnea speaking sentences. PSYCHIATRIC: Appropriate mood and affect; insight and judgment normal. Pt update on day of discharge The patient states that she is feeling better today. Still short of breath with activity, but less than yesterday. Mild urinary symptoms including very mild dysuria. She also has increased urinary frequency. She states that she gets frequent urinary infections. Hospital Course The patient was admitted for management of COPD exacerbation. She was started on IV steroids. She was continued on supplemental oxygen, bronchodilator therapy. Pulmonology was consulted. Her glucose was significantly elevated secondary to the steroids. She was started on Levemir and continued on sliding scale insulin coverage. She initially had acute kidney injury, but BUN and creatinine improved with IV fluids. She reported clinical improvement throughout the hospitalization and arrangements were made for discharge to residential facility for rehabilitation. Pt Condition on Discharge: Stable Discharge Disposition: Discharge to SNF Discharge Time: > 30 minutes Discharge Instructions DIET: Follow Instructions for: Heart Healthy Diet, Diabetic Diet Activities you can perform: Regular-No Restrictions Follow up Referrals: PCP Follow-up - 2 Weeks Pulmonology - 2 Weeks with Ria Kwong MD New Medications: Prednisone (Prednisone) 20 Mg Tab 20 MG PO DIRECTED for Inflammation, #30 TAB 0 Refills Take 60 MG daily x 4 days, then 40 MG x 4 days, then 20 MG daily x 4 days, then 10mg daily. Diltiazem (Cardizem) 30 Mg Tab 20 MG PO QID for Blood Pressure Management, #120 TAB 0 Refills Insulin Detemir Inj (Levemir Inj) 1,000 unit/ 10 ML Vial 5 UNITS SQ Q12HR for Blood Sugar Management, #100 UNITS 0 Refills Do not mix with any other Insulin. Nitrofurantoin Monohydrate Macrocrystals (Nitrofurantoin Monohydrate Macrocrystals) 100 Mg Cap 100 MG PO BIDPC for Infection, #20 CAP 0 Refills Continued Medications: Albuterol 6.7 GM Inh (Proventil Hfa 6.7 GM Inh) 90 Mcg/Act Aer 2 PUFF INH Q4-6H PRN for SHORTNESS OF BREATH, #1 INHALER [address] (Cymbalta DR) 30 Mg Capdr 30 MG PO DAILY, #30 CAP 0 Refills Lorazepam (Lorazepam) 0.5 Mg Tab 0.5 MG PO Q8H PRN for ANXIETY, #9 TAB 0 Refills (This prescription has been renewed) Sitagliptin-Metformin (Janumet) 50-1,000 Mg Tab 1 TAB PO BID for Blood Sugar Management, #60 TAB 0 Refills Tiotropium Inh (Spiriva Handihaler) 18 Mcg Cap 18 MCG INH DAILY for COPD, #30 CAP 0 Refills 1 capsule = 18 mcg Valsartan-Hydrochlorothiazide (Diovan Hct) 160-12.5 Mg Tab 1 TAB PO DAILY for Blood Pressure Management, #30 TAB 0 Refills Discontinued Medications: Diltiazem (Cardizem) 30 Mg Tab 10 MG PO QID for Angina, #120 TAB 0 Refills Glipizide (Glipizide) 5 Mg Tab 5 MG PO DAILY for Blood Sugar Management, #30 TAB 0 Refills Take 30 minutes before a meal Prednisone (Prednisone) 10 Mg Tab 10 MG PO DAILY, TAB 0 Refills Walt Brown MD May 03, 2017 14:12
[2017-05-03] MEDS: NITROFURANTOIN MONOHYD MACROCR 100 MG CAP PO SCH ×2 (15:04→17:30)
--- NOTE | 2017-05-03 16:36 | HHI.PR ---
Subjective Remarks 71 YOWF with COPD Exac, 02 dependant Breathing lot better Cough, not able to expactorate no fever No CP No new complaint Objective Vital Signs Vital Signs Date Time Temp Pulse Resp B/P (MAP) Pulse Ox O2 Delivery O2 Flow Rate FiO2 05/03/17 12:18 98.4 98 17 141/63 (89) 96 05/03/17 08:53 98.5 86 18 128/60 (82) 94 05/03/17 08:20 Nasal Cannula 2.00 05/03/17 07:48 93 Nasal Cannula 3.00 05/03/17 05:37 98.0 97 18 160/67 (98) 96 05/03/17 00:53 98.0 100 18 171/78 (109) 95 05/03/17 00:03 96 Nasal Cannula 2.50 05/02/17 21:27 98.5 104 18 154/63 (93) 96 05/02/17 20:00 Nasal Cannula 2.50 05/02/17 19:43 91 Nasal Cannula 3.00 05/02/17 18:05 Nasal Cannula 3.00 I/O 05/02/17 05/02/17 05/02/17 05/03/17 05/03/17 05/03/17 07:00 15:00 23:00 07:00 15:00 23:00 Intake Total 720 ml 480 ml Balance 720 ml 480 ml Intake Oral 720 ml 480 ml # Voids 5 5 # Bowel Movements 1 Result Diagram: 05/03/17 0640 05/03/17 0640 Objective Remarks GENERAL: obese WF, mild sob SKIN: Warm and dry. HEAD: Normocephalic. EYES: No scleral icterus. No injection or drainage. NECK: Supple, trachea midline. No JVD or lymphadenopathy. CARDIOVASCULAR: Regular rate and rhythm without murmurs, gallops, or rubs. RESPIRATORY: Breath sounds equal bilaterally. No accessory muscle use. End Exp rhonchi GASTROINTESTINAL: Abdomen soft, non-tender, nondistended. MUSCULOSKELETAL: No cyanosis, or edema. BACK: Nontender without obvious deformity. No CVA tenderness. A/P Assessment and Plan COPD exac HTN DM Resp acidosis nicotine use PLAN: Aerosol nebs Cont Steroids supplement 02 Acapella DC plans underway for Rehab Shalom Yeboah MD May 03, 2017 16:36
== END 2017-05-03 18:05 | DRG 191 ==
LOC: NEPC 20:14 → NEDA 22:54 → N05A 05-01 00:10
PROVIDERS: ADMIT Family Medicine; ATTEND Family Medicine
PROC: 3E0F7GC Introduction of Other Therapeutic Substance into Respiratory Tract, Via Natural or Artificial Opening (ICD-10-PCS; principal; 2017-04-30)
DX: J44.1 Chronic obstructive pulmonary disease with (acute) exacerbation (principal); N17.9 Acute kidney failure, unspecified; E87.2 Acidosis; J96.10 Chronic respiratory failure, unspecified whether with hypoxia or hypercapnia; N39.0 Urinary tract infection, site not specified; I11.0 Hypertensive heart disease with heart failure; I50.9 Heart failure, unspecified; Z99.81 Dependence on supplemental oxygen; E11.65 Type 2 diabetes mellitus with hyperglycemia; F17.210 Nicotine dependence, cigarettes, uncomplicated; F32.9 Major depressive disorder, single episode, unspecified; Z79.84 Long term (current) use of oral hypoglycemic drugs; Z79.52 Long term (current) use of systemic steroids; E86.0 Dehydration
CPT/HCPCS: 36600; 71010; 80048; 80053; 81001; 82805; 82948; 83036; 83880; 84443; 85025; 85610; 85730; 87077; 87086; 87186; 87804; 93306; 94640; 94664; 94667; 94668; 96374; 96375; J1644; J1815; J2920; J2930; J7030

== ENCOUNTER 2017-05-04 15:33 | Observation (INO) | payer MEDICARE ==
[~2017-05-04] VITALS: Ht 160 cm; Wt 78.0 kg
[~2017-05-04 15:33] MED LIST changes: +ALBU6.7H INH; +CYMB30CA PO; +DILT31TA PO; +LEVEMIR SQ; -LEVO500T3 PO; +LORA-373 PO; +NITR100C4 PO
[2017-05-04 15:49] VITALS: BP 143/67; PULSE 94; RESP 20; TEMP 98; O2SAT 96
[2017-05-04] MEDS ORDERED: ACETAMINOPHEN 500 MG CPLT PO ONE (16:45)
--- NOTE | 2017-05-04 16:58 | PD ---
HPI Chief Complaint: Fall Time Seen by Provider: 16:54 Travel History International Travel<30 days: No Contact w/Intl Traveler<30days: No Traveled to known affect area: No History of Present Illness HPI Patient comes emergency Department complaining of headache and neck pain after rolling out of bed hitting her head on the floor. Patient states she just fell asleep in bed and that caused her rollout hitting her head. Patient denies doing anything for this prior to coming to the emergency department. Patient denies any loss of consciousness, nausea, vomiting, chest pain, shortness of breath, numbness or tingling anywhere. Patient was just released from the hospital yesterday and sent back to assisted living facility where she lives. Patient denies any change in vision. Denies anything making her symptoms better or worse. Pain is throbbing aching like in nature without radiation. PFSH Past Medical History Arthritis: Yes Asthma: Yes Anxiety: Yes Cancer: No Cardiovascular Problems: Yes Congestive Heart Failure: Yes COPD: Yes (wears 2LNC at home) Coronary Artery Disease: No Diabetes: Yes Endocrine: Yes Genitourinary: Yes Hypertension: Yes Musculoskeletal: Yes Neurologic: No Psychiatric: Yes Reproductive: No Respiratory: Yes : 3 Para: 2 Miscarriage: 1 Past Surgical History Hysterectomy: Yes Social History Alcohol Use: No Tobacco Use: Yes Substance Use: No Allergies-Medications (Allergen,Severity, Reaction): Coded Allergies: penicillin G (Unverified Allergy, Severe, Hives, 03/22/17) erythromycin base (Unverified Allergy, Mild, Yeast infection, 03/22/17) Reported Meds & Prescriptions Reported Meds & Active Scripts Active Prednisone 20 Mg Tab 20 Mg PO DIRECTED Take 60 MG daily x 4 days, then 40 MG x 4 days, then 20 MG daily x 4 days, then 10mg daily. Levemir Inj (Insulin Detemir) 1,000 unit/ 10 ML Vial 5 Units SQ Q12HR Do not mix with any other Insulin. Cardizem (Diltiazem HCl) 30 Mg Tab 20 Mg PO QID Nitrofurantoin Monohydrate Macrocrystals (Nitrofurantoin Monoh/Nitrofur Macro) 100 Mg Cap 100 Mg PO BIDPC Lorazepam 0.5 Mg Tab 0.5 Mg PO Q8H PRN Reported Cymbalta DR (Duloxetine HCl) 30 Mg Capdr 30 Mg PO DAILY Proventil Hfa 6.7 GM Inh (Albuterol Sulfate) 90 Mcg/Act Aer 2 Puff INH Q4-6H PRN Janumet (Sitagliptin-Metformin) 50-1,000 Mg Tab 1 Tab PO BID Diovan Hct (Valsartan-Hydrochlorothiazide) 160-12.5 Mg Tab 1 Tab PO DAILY Spiriva Handihaler (Tiotropium Inh) 18 Mcg Cap 18 Mcg INH DAILY 1 capsule = 18 mcg Review of Systems Except as stated in HPI: all other systems reviewed are Neg Physical Exam Narrative GENERAL: Well-developed, overly nourished, in no acute distress, and non-ill appearing. SKIN: Hematoma noted on forehead. There is no crepitus. It is tender to palpation. HEAD: Atraumatic. Normocephalic. EYES: Pupils equal and round. EOMI. No scleral icterus. No injection or drainage. ENT: No nasal bleeding or discharge. Mucous membranes pink and moist. NECK: Trachea midline. C-collar in place. Patient reports tenderness over paravertebral spinal muscles. No tetanus or crepitus over midline cervical spine. CARDIOVASCULAR: Regular rate and rhythm. No murmur appreciated. RESPIRATORY: No accessory muscle use. No respiratory distress. Clear to auscultation. Breath sounds equal bilaterally. MUSCULOSKELETAL: No obvious deformities. No clubbing. No cyanosis. No edema. Full range of motion. NEUROLOGICAL: Awake and alert. No obvious cranial nerve deficits. Motor grossly within normal limits. Normal speech. PSYCHIATRIC: Appropriate mood and affect; insight and judgment normal. Data Data Last Documented VS Vital Signs Date Time Temp Pulse Resp B/P (MAP) Pulse Ox O2 Delivery O2 Flow Rate FiO2 05/04/17 15:49 98.0 94 20 143/67 (92) [address] Brain W/O Iv Contrast(Rout) (05/04/17 ) Ct Cerv Spine W/O Contrast (05/04/17 ) Acetaminophen (Tylenol) (05/04/17 16:45) Ice/Cold Pack (05/04/17 16:41) Admit Order (Ed Use Only) (05/04/17 18:27) Consult Neurosurgery (05/04/17 ) MDM Medical Decision Making Medical Screen Exam Complete: Yes Emergency Medical Condition: Yes Interpretation(s) CT the head read by the radiologist shows: 1. Large anterior frontal scalp hematoma. 2. Possible small anterior frontal lobe contusions. CT the neck or better radiologist shows: Multilevel degenerative findings. No evidence of fracture. Differential Diagnosis Close head injury, hematoma, intracranial hemorrhage, fracture, strain, other Narrative Course Patient was seen and examined. Purulent postnasal ordered. Patient's medical records reviewed including lab work done over the past [address] days[address]iscuss[address] patient with Dr. Calle, who is in agreement with plan of care and disposition. Discussed all findings and plan care of patient, who is agreeable for admission. Discussed patient with neurosurgery, who is agreeable to consult on patient. Discussed patient with hospitalist was agreeable to admit the patient. Patient remained stable throughout ED course. Physician Communication Physician Communication [id number] Cutler, neurosurgeon monorail helper, recommends the patient admitted and will consult on patient. [address] Toussaint, who is agreeable to admit the patient. Diagnosis Primary Impression: Frontal lobe contusion Qualified Codes: S06.330A - Contusion and laceration of cerebrum, unspecified , without loss of consciousness, initial encounter Additional Impressions: Fall Qualified Codes: W19.XXXA - Unspecified fall, initial encounter Hematoma Admitting Information Admitting Physician Requests: Observation Condition: Stable Vic Wing May 04, 2017 16:58
--- NOTE | 2017-05-04 17:34 | RADRPT ---
EXAM DATE/TIME: 05/04/2017 17:05 [facility] COMPARISON: No previous studies available for comparison. INDICATIONS : Trauma, patient fell. RADIATION DOSE: 21.41 CTDIvol (mGy) MEDICAL HISTORY : Cardiovascular disease. Hypertension. Chronic obstructive pulmonary disease.diabetic SURGICAL HISTORY : Hysterectomy. ENCOUNTER: Initial ACUITY: 1 day PAIN SCALE: 5/10 LOCATION: neck TECHNIQUE: Volumetric scanning of the cervical spine was performed. Multiplanar reconstructions in the sagittal, coronal and oblique axial planes were performed. Using automated exposure control and adjustment o f the mA and/or kV according to patient size, radiation dose was kept as low as reasonably achievable to obtain optimal diagnostic quality images. DICOM format image data is available electronically f or review and comparison. FINDINGS: VERTEBRAE: Normal vertebral body height. ALIGNMENT: 2 mm anterolisthesis C3 on C4. Alignment otherwise within normal limits. C2-C3: Moderate severity right-sided facet arthrosis and broad-based disc bulge. No evidence of focal disc p rotrusion. Central canal normal diameter. Neural foraminal diameters within normal limits. C3-C4: Severe left-sided facet arthrosis. Severe left neural foraminal narrowing. Central canal diameter wit hin normal limits. C4-C5: Broad-based disc osteophyte complex. Moderate right and mild left neural foraminal narrowing. Mild ce ntral canal narrowing. C5-C6: Broad-based disc osteophyte complex. Left lateral disc protrusion. Moderate left neural foraminal heriberto rowing. C6-C7: Broad-based disc osteophyte complex. Mild left neural foraminal narrowing. Central canal diameter is within normal limits. C7-T1: The bony spinal canal is normal in size. No evidence of disc bulge or herniation. The neural forami na are bilaterally patent. CONCLUSION: Multilevel degenerative findings. No evidence of fracture. Hemal Lin MD on May 04, 2017 at 17:28 Board Certified Radiologist. This report was verified electronically.
--- NOTE | 2017-05-04 17:41 | RADRPT ---
EXAM DATE/TIME: 05/04/2017 17:05 [facility] COMPARISON: No previous studies available for comparison. INDICATIONS : Trauma, patient fell out of bed, hematoma on forehead. RADIATION DOSE: 37.22 CTDIvol (mGy) ; Patient motion MEDICAL HISTORY : Cardiovascular disease. Hypertension. Chronic obstructive pulmonary disease.diabetic SURGICAL HISTORY : Hysterectomy. ENCOUNTER: Initial ACUITY: 1 day PAIN SCALE: 5/10 LOCATION: cranial TECHNIQUE: Multiple contiguous axial images were obtained of the head. Using automated exposure control and adj ustment of the mA and/or kV according to patient size, radiation dose was kept as low as reasonably a chievable to obtain optimal diagnostic quality images. DICOM format image data is available electro nically for review and comparison. FINDINGS: CEREBRUM: Mild hyperdensity the far anterior frontal cortex bilaterally immediately deep to the scalp hematoma indicating possible anterior frontal parenchymal contusions. The ventricles are normal for age. No e vidence of midline shift, mass lesion, hemorrhage or acute infarction. No extra-axial fluid collecti ons are seen. POSTERIOR FOSSA: The cerebellum and brainstem are intact. The 4th ventricle is midline. The cerebellopontine angle i s unremarkable. EXTRACRANIAL: The visualized portion of the orbits is intact. SKULL: Large left frontal scalp hematoma. No evidence of fracture. CONCLUSION: 1. Large anterior frontal scalp hematoma. 2. Possible small anterior frontal lobe contusions. Hemal Lin MD on May 04, 2017 at 17:37 Board Certified Radiologist. This report was verified electronically.
[2017-05-04] MEDS ORDERED: GLUCAGON 1 MG/ML VIAL OTHER PRN (18:45)
[2017-05-04] MEDS ORDERED: oxyCODONE/ACETAMINOPHEN 10 MG/325 MG TAB PO PRN (18:45)
[2017-05-04] MEDS ORDERED: BISACODYL 10 MG SUPP RECTAL PRN (18:45)
[2017-05-04] MEDS ORDERED: NALOXONE HCL 0.4 MG/ML AMP IV PUSH PRN (18:45)
[2017-05-04] MEDS ORDERED: MORPHINE SULFATE 4 MG/ML INJ IV PUSH PRN ×2 (18:45)
[2017-05-04] MEDS ORDERED: ACETAMINOPHEN 325 MG TAB PO PRN ×2 (18:45)
[2017-05-04] MEDS ORDERED: LACTULOSE SYRUP 20 GM/30 ML CUP PO PRN (18:45)
[2017-05-04] MEDS ORDERED: ALBUTEROL SULFATE 90 MCG/ACT HFA 8 GM INHALER INH PRN (18:45)
[2017-05-04] MEDS ORDERED: DEXTROSE 50% IN WATER 50 ML VIAL(D50) IV PUSH PRN (18:45)
[2017-05-04] MEDS ORDERED: SENNOSIDES 8.6 MG TAB PO PRN (18:45)
[2017-05-04] MEDS ORDERED: LORazepam 0.5 MG TAB PO PRN (18:45)
[2017-05-04] MEDS ORDERED: ONDANSETRON HCL 4 MG/2 ML VIAL IVP PRN (18:45)
[2017-05-04] MEDS ORDERED: MAGNESIUM HYDROXIDE SUSP 30 ML CUP PO PRN (18:45)
[2017-05-04] MEDS ORDERED: PROCHLORPERAZINE 25 MG SUPP RECTAL PRN (18:45)
[2017-05-04] MEDS ORDERED: oxyCODONE/ACETAMINOPHEN 5 MG/325 MG TAB PO PRN (18:45)
[2017-05-04] MEDS ORDERED: SODIUM CHLORIDE 0.9% FLUSH 10 ML FLUSH IV FLUSH PRN (18:45)
[2017-05-04] MEDS ORDERED: guaiFENesin E.R. 600 MG TAB PO SCH (21:00)
[2017-05-04] MEDS ORDERED: NON-FORMULARY DRUG (Sitagliptin-Metformin (Janumet) 1 TAB) PO SCH (21:00)
[2017-05-04] MEDS ORDERED: metFORMIN HCL 500 MG TAB PO SCH (21:00)
[2017-05-04 22:20] VITALS: O2SAT 98
[2017-05-04] MEDS: RESP: ALBUTEROL 2.5 MG/IPRATROPIUM 0.5 MG NEB (PRN) NEB (22:20)
[2017-05-04] MEDS: DOCUSATE SODIUM 50 MG/SENNA 8.6 MG TAB PO SCH (22:24)
[2017-05-04] MEDS: predniSONE 20 MG TAB PO SCH (22:24)
[2017-05-04] MEDS: INSULIN DETEMIR 100 UNITS/ML VIAL SQ SCH (22:24)
[2017-05-04] MEDS: PANTOPRAZOLE SOD 40 MG DELAYED RELEASE TAB PO SCH (22:25)
[2017-05-04] MEDS: INSULIN ASPART SUPPLEMENTAL SCALE SQ SCH (22:46)
[2017-05-04] MEDS: DILTIAZEM HCL 30 MG TAB PO SCH (22:46)
--- NOTE | 2017-05-04 22:59 | HHI.HP ---
[facility] Demarcus Winters MD Admission Diagnosis frontal lobe contusion, fall Diagnoses: Chief Complaint: fall Travel History International Travel<30 Days: No Contact w/Intl Traveler <30 Da: No Traveled to Known Affected Are: No History of Present Illness Written by LEONARD Krause acting as scribe for [Petra] on 05/04/17 at 22: 50. 71 y/o female with a history of COPD o2 dependant, DM, HTN and irregular heart beat presented to the ED after a fall at the nursing facility. Patient states she rolled out of bed at rehab and hit the front part of her head yesterday. Denies any LOC. She is complaining of a frontal headache, and nausea. She denies any dizziness, chest pain, abdominal pain or sob. Patient was recently discharged on 05/03 from the hospital for a COPD exacerbation and was sent to a [facility] rehab. Review of Systems Except as stated in HPI: all other systems reviewed are Neg Past Family Social History Past Medical History COPD O2 dependant DM HTN Irregular heart beat Past Surgical History Hysterectomy Reported Medications Reported Meds & Active Scripts Active Prednisone 20 Mg Tab 20 Mg PO DIRECTED Take 60 MG daily x 4 days, then 40 MG x 4 days, then 20 MG daily x 4 days, then 10mg daily. Levemir Inj (Insulin Detemir) 1,000 unit/ 10 ML Vial 5 Units SQ Q12HR Do not mix with any other Insulin. Cardizem (Diltiazem HCl) 30 Mg Tab 20 Mg PO QID Nitrofurantoin Monohydrate Macrocrystals (Nitrofurantoin Monoh/Nitrofur Macro) 100 Mg Cap 100 Mg PO BIDPC Lorazepam 0.5 Mg Tab 0.5 Mg PO Q8H PRN Reported Cymbalta DR (Duloxetine HCl) 30 Mg Capdr 30 Mg PO DAILY Proventil Hfa 6.7 GM Inh (Albuterol Sulfate) 90 Mcg/Act Aer 2 Puff INH Q4-6H PRN Janumet (Sitagliptin-Metformin) 50-1,000 Mg Tab 1 Tab PO BID Diovan Hct (Valsartan-Hydrochlorothiazide) 160-12.5 Mg Tab 1 Tab PO DAILY Spiriva Handihaler (Tiotropium Inh) 18 Mcg Cap 18 Mcg INH DAILY 1 capsule = 18 mcg Allergies: Coded Allergies: penicillin G (Unverified Allergy, Severe, Hives, 05/04/17) erythromycin base (Unverified Allergy, Mild, Yeast infection, 05/04/17) Active Ordered Medications Current Medications Medications (Trade) Dose Ordered Sig/Bonnie Route Start Time Stop Time Status Last Admin (D50w (Vial) Inj) 50 ml UNSCH PRN IV PUSH 05/04/17 18:45 (Glucagon Inj) 1 mg UNSCH PRN OTHER 05/04/17 18:45 (NovoLOG SUPPLEMENTAL SCALE) 1 ACHS SLIDING SCALE SQ 05/04/17 21:00 05/04/17 22:46 (Proair Hfa Inh) 2 puff Q4HR PRN INH 05/04/17 18:45 (Cardizem) 20 mg QID PO 05/04/17 21:00 05/04/17 22:46 (Cymbalta Dr) 30 mg DAILY PO 05/05/17 09:00 (Levemir Inj) 5 units Q12HR SQ 05/04/17 21:00 05/04/17 22:24 (Ativan) 0.5 mg Q8H PRN PO 05/04/17 18:45 (Macrobid) 100 mg BIDPC PO 05/05/17 09:00 (Deltasone) 20 mg BID PO 05/04/17 21:00 05/04/17 22:24 (Spiriva Inh) 18 mcg DAILY INH 05/05/17 09:00 (NS Flush) 2 ml UNSCH PRN IV FLUSH 05/04/17 18:45 (NS Flush) 2 ml BID IV FLUSH 05/04/17 21:00 (Zofran Inj) 4 mg Q6H PRN IVP 05/04/17 18:45 (Narcan Inj) 0.4 mg UNSCH PRN IV PUSH 05/04/17 18:45 (Lindsey-Colace) 1 tab BID PO 05/04/17 21:00 05/04/17 22:24 (Milk Of Magnesia Liq) 30 ml Q12H PRN PO 05/04/17 18:45 (Protonix) 40 mg Q12HR PO 05/04/17 21:00 05/04/17 22:25 (Duoneb Neb) 1 ampule Q4HR NEB PRN NEB 05/04/17 18:45 (Januvia) 50 mg BID PO 05/04/17 21:00 05/04/17 22:24 (Diovan) 160 mg DAILY PO 05/05/17 09:00 (Microzide) 12.5 mg DAILY PO 05/05/17 09:00 Family History Mom: Colon cancer Dad: Heart disease and CKD Social History Tobacco use: Quit 3 weeks ago Alcohol use: Denies Illicit use: Denies Physical Exam Vital Signs Vital Signs Date Time Temp Pulse Resp B/P (MAP) Pulse Ox O2 Delivery O2 Flow Rate FiO2 05/04/17 15:49 98.0 94 20 143/67 (92) 96 Physical Exam GENERAL: This is a chronically ill looking patient who is 02 dependent SKIN: Forehead and bilateral orbital ecchymosis. HEAD: Atraumatic. Normocephalic. EYES: Pupils equal round and reactive. ENT: Nose without bleeding, purulent drainage or septal hematoma. Airway patent. NECK: Trachea midline. No JVD. CARDIOVASCULAR: Regular rate and rhythm without murmurs, gallops, or rubs. RESPIRATORY: Clear to auscultation. Breath sounds equal bilaterally. No wheezes , rales, or rhonchi. O2 2L continuous GASTROINTESTINAL: Abdomen soft, non-tender, nondistended. MUSCULOSKELETAL: Extremities without clubbing, cyanosis, or edema. No calf tenderness. NEUROLOGICAL: Awake and alert. Motor and sensory grossly within normal limits. Normal speech. Imaging Last Impressions Head CT 05/04/17 0000 Signed Impressions: Service Date/Time: April 17:05 - CONCLUSION: 1. Large anterior frontal scalp hematoma. 2. Possible small anterior frontal lobe contusions. Hemal Lin MD Cervical Spine CT 05/04/17 0000 Signed Impressions: Service Date/Time: April 17:05 - CONCLUSION: Multilevel degenerative findings. No evidence of fracture. Hemal Lin MD Caprini VTE Risk Assessment Caprini VTE Risk Assessment: Mod/High Risk (score >= 2) Caprini Risk Assessment Model Point Value = 1 Point Value = 2 Point Value = 3 Point Value = 5 Age 41-60 Minor surgery BMI > 25 kg/m2 Swollen legs Varicose veins or History of unexplained or recurrent spontaneous Oral contraceptives or hormone replacement Sepsis (< 1 month) Serious lung disease, including pneumonia (< 1 month) Abnormal pulmonary function Acute myocardial infarction Congestive heart failure (< 1 month) History of inflammatory bowel disease Medical patient at bed rest Age 61-74 Arthroscopic surgery Major open surgery (> 45 min) Laparoscopic surgery (> 45 min) Malignancy Confined to bed (> 72 hours) Immobilizing plaster cast Central venous access Age >= 75 History of VTE Family history of VTE Factor V Leiden Prothrombin [id number] Lupus anticoagulant Anticardiolipin antibodies Elevated serum homocysteine Heparin-induced thrombocytopenia Other congenital or acquired thrombophilia Stroke (< 1 month) Elective arthroplasty Hip, pelvis, or leg fracture Acute spinal cord injury (< 1 month) Prophylaxis Regimen Total Risk Factor Score Risk Level Prophylaxis Regimen 0-1 Low Early ambulation 2 Moderate Order ONE of the following: *Sequential Compression Device (SCD) *Heparin 5000 units SQ BID 3-4 Higher Order ONE of the following medications: *Heparin 5000 units SQ TID *Enoxaparin/Lovenox 40 mg SQ daily (WT < 150 kg, CrCl > 30 mL/min) *Enoxaparin/Lovenox 30 mg SQ daily (WT < 150 kg, CrCl > 10-29 mL/min) *Enoxaparin/Lovenox 30 mg SQ BID (WT < 150 kg, CrCl > 30 mL/min) AND/OR *Sequential Compression Device (SCD) 5 or more Highest Order ONE of the following medications: *Heparin 5000 units SQ TID (Preferred with Epidurals) *Enoxaparin/Lovenox 40 mg SQ daily (WT < 150 kg, CrCl > 30 mL/min) *Enoxaparin/Lovenox 30 mg SQ daily (WT < 150 kg, CrCl > 10-29 mL/min) *Enoxaparin/Lovenox 30 mg SQ BID (WT < 150 kg, CrCl > 30 mL/min) AND *Sequential Compression Device (SCD) Assessment and Plan Problem List: (1) Frontal lobe contusion ICD Code: S06.339A - Contusion and laceration of cerebrum, unspecified, with loss of consciousness of unspecified duration, initial encounter Status: Acute (2) Fall ICD Code: W19.XXXA - Unspecified fall, initial encounter Status: Acute (3) COPD exacerbation ICD Code: J44.1 - Chronic obstructive pulmonary disease with (acute) exacerbation Status: Chronic Assessment and Plan 71 y/o female with a history of COPD o2 dependant, DM, HTN and irregular heart beat presented to the ED after a fall at the nursing facility. Frontal Lobe contusion s/p fall at rehab Head CT reviewed and shows a large anterior frontal scalp hematoma, and small anterior frontal lobe contusions Cervical spine CT reviewed and shows no fracture -Neuro checks -Consult neuro surgery, Dr. Cutler to see patient in am COPD, chronic, post exacerbation admission 04/30-05/03 -Cont Prednisone taper 40 MG daily x 4 days, then 20 MG daily x 4 days, then 10mg daily. Patient takes 10mg daily chronic. -Duonebs scheduled and prn -O2 2L Continuous DM, chronic -ACCU checks w/ SSI -Resume home medications Januvia, and Levemir, hold metformin for now in case contrast studies are needed HTN, chronic, currently controlled: Continue home medications Valsartan and HCTZ , monitor vitals DVT Prophylaxis: SCDs Code Status- difficult to discuss at this time, however is quite important to do so since patient is a poor protoplasm with advanced COPD., Will consult palliative care to clarify goals. Particularly to designate health care surrogate in case one tape patient is intubated and cannot participate in her health care discussions. This note was transcribed by deepthi [Martina Boo]. I, Dr. Shirley Lambert personally performed the history, physical exam, and medical decision making; and confirmed the accuracy of the information in the transcribed note. Authenticated by Dr. Shirley Lambert on 05/04/17 at 22:50. Discussed Condition With Patient and RN Problem Qualifiers (1) Frontal lobe contusion: Qualified Codes: S06.330A - Contusion and laceration of cerebrum, unspecified, without loss of consciousness, initial encounter (2) Fall: Qualified Codes: W19.XXXA - Unspecified fall, initial encounter Martina Boo May 04, 2017 22:59 Shirley Lambert MD May 05, 2017 10:24
[2017-05-04 23:48] VITALS: BP 170/86; PULSE 99; RESP 22; O2SAT 96
[2017-05-05] MEDS: SODIUM CHLORIDE 0.9% FLUSH 10 ML FLUSH IV FLUSH SCH ×2 (00:02→08:52)
[2017-05-05 00:54] VITALS: BP 169/97; PULSE 110; RESP 20; TEMP 98.1; O2SAT 98
[2017-05-05 04:01] VITALS: PULSE 101
[2017-05-05 04:53] VITALS: BP 154/74; PULSE 105; RESP 16; TEMP 98; O2SAT 92
[2017-05-05] MEDS: RESP: ALBUTEROL 2.5 MG/IPRATROPIUM 0.5 MG NEB (PRN) NEB ×2 (06:35→11:43)
[2017-05-05 07:41] LABS: INTERNATIONAL NORMALIZED RATIO 0.9 RATIO; PROTHROMBIN TIME - PATIENT 10.4 SEC (9.8-11.6)
[2017-05-05 07:55] LABS: ANION GAP 6 MEQ/L (5-15); AST (GOT) 19 U/L (15-37); BICARBONATE 40.3 MEQ/L (21.0-32.0); BLOOD UREA NITROGEN 35 MG/DL (7-18); CHLORIDE 91 MEQ/L (98-107); GLOMERULAR FILTRATION RATE 69 ML/MIN (>89); POTASSIUM 4.4 MEQ/L (3.5-5.1); SODIUM (NA) 137 MEQ/L (136-145)
[2017-05-05 08:02] LABS: ALT (GPT) 23 U/L (10-53)
[2017-05-05 08:24] VITALS: BP 158/89; PULSE 95; RESP 16; TEMP 98.5; O2SAT 96
[2017-05-05 08:39] LABS: ALKALINE PHOSPHATASE 62 U/L (45-117); FREE T4 0.91 NG/DL (0.76-1.46); TOTAL BILIRUBIN ADULT 1.2 MG/DL (0.2-1.0)
[2017-05-05] MEDS ORDERED: ACETAMINOPHEN 325 MG TAB PO PRN (08:45)
[2017-05-05] MEDS: predniSONE 20 MG TAB PO SCH (08:48)
[2017-05-05] MEDS: DOCUSATE SODIUM 50 MG/SENNA 8.6 MG TAB PO SCH (08:48)
[2017-05-05] MEDS: DILTIAZEM HCL 30 MG TAB PO SCH ×2 (08:49→13:45)
--- NOTE | 2017-05-05 08:49 | HHI.PR ---
Subjective Remarks Follow-up for fall and brain contusion. The patient has a mild headache today. She has some periorbital ecchymosis and swelling which is impeding her vision. She denies any numbness, tingling, or weakness. She states her breathing is at baseline. Objective Vitals Vital Signs Date Time Temp Pulse Resp B/P (MAP) Pulse Ox O2 Delivery O2 Flow Rate FiO2 05/05/17 08:24 98.5 95 16 158/89 (112) 96 05/05/17 04:53 98.0 105 16 154/74 (100) 92 05/05/17 04:01 101 05/05/17 00:54 98.1 110 20 169/97 (121) 98 05/04/17 23:48 99 22 170/86 (114) 96 Nasal Cannula 2.00 05/04/17 22:20 98 Nasal Cannula 2.00 05/04/17 15:49 98.0 94 20 143/67 (92) 96 Result Diagram: 05/05/17 0554 Imaging Last Impressions Head CT 05/04/17 0000 Signed Impressions: Service Date/Time: April 17:05 - CONCLUSION: 1. Large anterior frontal scalp hematoma. 2. Possible small anterior frontal lobe contusions. Hemal Lin MD Cervical Spine CT 05/04/17 0000 Signed Impressions: Service Date/Time: April 17:05 - CONCLUSION: Multilevel degenerative findings. No evidence of fracture. Hemal Lin MD Objective Remarks GENERAL: Well-developed well-nourished chronically ill-appearing female. Sleepy , however answers questions appropriately and is in no acute distress. SKIN: Warm and dry. Periorbital ecchymosis and swelling. HEENT: Normocephalic. Pupils equal and round. Mucous membranes pink and moist. CARDIOVASCULAR: Regular rate and rhythm. No murmur appreciated. RESPIRATORY: No accessory muscle use. Clear to auscultation. Distant breath sounds with occasional mild expiratory wheeze. GASTROINTESTINAL: Abdomen soft, non-tender, nondistended. Bowel sounds x4. MUSCULOSKELETAL: No obvious deformities. No clubbing or cyanosis. No edema. NEUROLOGICAL: Sleepy but awakens to voice. Moves upper and lower extremities spontaneously. Normal speech. PSYCHIATRIC: Appropriate mood and affect; insight and judgment normal. A/P Problem List: (1) Frontal lobe contusion ICD Code: S06.339A - Contusion and laceration of cerebrum, unspecified, with loss of consciousness of unspecified duration, initial encounter Status: Acute (2) Fall ICD Code: W19.XXXA - Unspecified fall, initial encounter Status: Acute (3) COPD exacerbation ICD Code: J44.1 - Chronic obstructive pulmonary disease with (acute) exacerbation Status: Chronic Assessment and Plan 71 y/o female with a history of COPD o2 dependant, DM, HTN and irregular heart beat presented to the ED after a fall at the nursing facility. Frontal Lobe contusion s/p fall at rehab Reviewed: Head CT showed a large anterior frontal scalp hematoma, and small anterior frontal lobe contusions. Cervical spine CT showed no fracture -Neuro checks -Consulted neuro surgery, Dr. Cutler, appreciate input -PT eval -Check a.m. labs COPD, chronic respiratory failure on home O2. Recent admission for exacerbation 04/30-05/03, patient denies acute worsening. -Cont Prednisone taper 40 MG daily x 4 days, then 20 MG daily x 4 days, then 10mg daily. Patient takes 10mg daily chronic. -Duonebs scheduled and prn -O2 2L Continuous DM, chronic -ACCU checks w/ SSI -Continue home medications Januvia, and Levemir, hold metformin for now in case contrast studies are needed HTN, chronic, currently controlled: Continue home medications Valsartan, diltiazem, and HCTZ, monitor vitals DVT Prophylaxis: SCDs Palliative care was consulted for goals of care Discharge Planning Will go back to SNF at discharge. Follow-up neurosurgery recommendations. Patient cleared by neurosurgery for discharge at 1300. DC back to SNF. Problem Qualifiers (1) Frontal lobe contusion: Qualified Codes: S06.330A - Contusion and laceration of cerebrum, unspecified, without loss of consciousness, initial encounter (2) Fall: Qualified Codes: W19.XXXA - Unspecified fall, initial encounter Rakesh Chavez May 05, 2017 08:49
[2017-05-05] MEDS: INSULIN ASPART SUPPLEMENTAL SCALE SQ SCH ×2 (08:51→13:45)
[2017-05-05] MEDS: PANTOPRAZOLE SOD 40 MG DELAYED RELEASE TAB PO SCH (08:52)
[2017-05-05] MEDS: INSULIN DETEMIR 100 UNITS/ML VIAL SQ SCH (08:52)
[2017-05-05] MEDS ORDERED: DULoxetine HCl DR 30 MG CAP PO SCH (09:00)
[2017-05-05] MEDS ORDERED: TIOTROPIUM BROMIDE 18 MCG INH INH SCH (09:00)
[2017-05-05] MEDS ORDERED: NON-FORMULARY DRUG (Valsartan-Hydrochlorothiazide (Diovan Hct) 1 TAB) PO SCH (09:00)
[2017-05-05] MEDS ORDERED: NITROFURANTOIN MONOHYD MACROCR 100 MG CAP PO SCH (09:00)
[2017-05-05] MEDS ORDERED: VALSARTAN 160 MG TAB PO SCH (09:00)
[2017-05-05] MEDS ORDERED: HYDROCHLOROTHIAZIDE 12.5 MG CAP PO SCH (09:00)
--- NOTE | 2017-05-05 10:42 | PD.CONS ---
Consult Service Palliative Care Consult Requested By Dr. Lambert. Primary Care Physician Demarcus Winters MD Reason for Consultation a. To assist with evaluation and management of symptoms including:shortness of breath, anxiety,debility b. To assist medical decision maker(s) with: better understanding of current medical conditions; weighing benefits/burdens of medical treatment options; making medical treatment decisions. (Sp Colvin) HPI History of Present Illness Mrs Montano is a 71 years old female with a past medical history of COPD and O2 dependant, DM, HTN, and irregular heart rate. Patient presented to the ED on after falling out of bed at [facility], complaining of headache and neck pain. Patient was recently discharged from the hospital on after being hospitalized for 4 days for COPD exacerbation. Head CT revealed a large anterior frontal scalp hematoma and possible small anterior frontal lobe contusion. Cervical spine CT revealed multilevel degenerative findings,no evidence of acute fracture. Neurosurgery Dr. Cutler consulted.Laboratory workup revealed PT 10.4, INR 0.9. Patient was admitted for observation. Palliative care consulted for goals of care. Patient seen in ED, sitting up in bed with head facing down in no acute distress.Denies pain at this time. Lethargic and oriented to place time and situation. Patient on O2 2L NC with no acute respiratory distress. Introduced role of palliative care in regards to goals of care. Reviewed events leading to her hospitalization and obtained her psychosocial history. Patient verbalized that she wants to be a full code and appointed her significant other Guzman Canas as a her healthcare surrogate. Attempted to contact Guzman Canas on number provided on chart, with no response and no option to leave a message (patient stated that number was incorrect). Function/Cognitive Trajectory Patient is oriented to self, person and situation. She is able to verbalize her needs. Patient states prior to hospitalization on 04/30/17 she was independent for all her ADLs, though she used a scooter at home and a 4 wheel rolling walker. Patient is also O2 dependant, Patient currently residing at [facility]. . (Sp Colvin) Review of Systems Constitutional: COMPLAINS OF: Pain, Generalized weakness, DENIES: Chills Eyes: COMPLAINS OF: Eye inflammation, Eye pain Ears, nose, mouth, throat: DENIES: Nasal discharge, Throat pain, Running Nose Respiratory: COMPLAINS OF: Shortness of breath, DENIES: Cough Cardiovascular: DENIES: Chest pain, Lower Extremity Edema Gastrointestinal: DENIES: Nausea Genitourinary: COMPLAINS OF: Urinary incontinence Musculoskeletal: COMPLAINS OF: Decreased range of motion Integumentary: DENIES: Rash Neurologic: COMPLAINS OF: Headache, DENIES: Seizures Psychiatric: COMPLAINS OF: Anxiety, DENIES: Hallucinations, Agitation ( Sp Colvin) Past Family Social History Coded Allergies: penicillin G (Unverified Allergy, Severe, Hives, 05/04/17) erythromycin base (Unverified Allergy, Mild, Yeast infection, 05/04/17) Past Medical History COPD O2 dependant DM HTN Irregular heart beat . Past Surgical History Hysterectomy Back surgery/Tens unit . Reported Medications Prednisone 20 Mg Tab 20 Mg PO DIRECTED Levemir Inj (Insulin Detemir) 1,000 unit/ 10 ML Vial 5 Units SQ Q12HR Cardizem (Diltiazem HCl) 30 Mg Tab 20 Mg PO QID Nitrofurantoin Monohydrate Macrocrystals (Nitrofurantoin Monoh/Nitrofur Macro) 100 Mg Cap 100 Mg PO BIDPC Lorazepam 0.5 Mg Tab 0.5 Mg PO Q8H PRN Cymbalta DR (Duloxetine HCl) 30 Mg Capdr 30 Mg PO DAILY Proventil Hfa 6.7 GM Inh (Albuterol Sulfate) 90 Mcg/Act Aer 2 Puff INH Q4-6H PRN Janumet (Sitagliptin-Metformin) 50-1,000 Mg Tab 1 Tab PO BID Diovan Hct (Valsartan-Hydrochlorothiazide) 160-12.5 Mg Tab 1 Tab PO DAILY Spiriva Handihaler (Tiotropium Inh) 18 Mcg Cap 18 Mcg INH DAILY Current Medications Medications (Trade) Dose Ordered Sig/Bonnie Route Start Time Stop Time Status Last Admin (D50w (Vial) Inj) 50 ml UNSCH PRN IV PUSH 05/04/17 18:45 (Glucagon Inj) 1 mg UNSCH PRN OTHER 05/04/17 18:45 (NovoLOG SUPPLEMENTAL SCALE) 1 ACHS SLIDING SCALE SQ 05/04/17 21:00 05/05/17 08:51 (Proair Hfa Inh) 2 puff Q4HR PRN INH 05/04/17 18:45 (Cardizem) 20 mg QID PO 05/04/17 21:00 05/05/17 08:49 (Cymbalta Dr) 30 mg DAILY PO 05/05/17 09:00 05/05/17 08:52 (Levemir Inj) 5 units Q12HR SQ 05/04/17 21:00 05/05/17 08:52 (Ativan) 0.5 mg Q8H PRN PO 05/04/17 18:45 (Macrobid) 100 mg BIDPC PO 05/05/17 09:00 05/05/17 08:48 (Deltasone) 20 mg BID PO 05/04/17 21:00 05/05/17 08:48 (Spiriva Inh) 18 mcg DAILY INH 05/05/17 09:00 05/05/17 08:50 (NS Flush) 2 ml UNSCH PRN IV FLUSH 05/04/17 18:45 (NS Flush) 2 ml BID IV FLUSH 05/04/17 21:00 05/05/17 08:52 (Zofran Inj) 4 mg Q6H PRN IVP 05/04/17 18:45 (Narcan Inj) 0.4 mg UNSCH PRN IV PUSH 05/04/17 18:45 (Lindsey-Colace) 1 tab BID PO 05/04/17 21:00 05/05/17 08:48 (Milk Of Magnesia Liq) 30 ml Q12H PRN PO 05/04/17 18:45 (Protonix) 40 mg Q12HR PO 05/04/17 21:00 05/05/17 08:52 (Duoneb Neb) 1 ampule Q4HR NEB PRN NEB 05/04/17 18:45 05/05/17 06:35 (Januvia) 50 mg BID PO 05/04/17 21:00 05/05/17 08:52 (Diovan) 160 mg DAILY PO 05/05/17 09:00 05/05/17 08:48 (Microzide) 12.5 mg DAILY PO 05/05/17 09:00 05/05/17 08:52 (Tylenol) 650 mg Q4H PRN PO 05/05/17 08:45 Family History Mom: Colon cancer Dad: Heart disease and CKD . Substance Use Tobacco:Quit 2 weeks ago prior to 04/30/17hospitalization. Smoked for 40+ years. Alcohol:No alcohol use Prescription med abuse: Denies Illicits:Denies . Psychosocial History Patient was born and raised in [place]. She moved to [place] about 10 years ago. Patient is and has 2 adult children who live up [place]. Patient currently resides with her significant other Guzman Canas and they have lived with each other for 34 years.Patient had a [employer] business when she was up [place]. . Spiritual/Cultural Factors No zoroastrianism affiliation. . (Sp Colvin) Living Will: Never completed Health Care Surrogate: Copy in medical record Durable Power of Night Warehouse Manager: Never completed Date completed: 05/05/2017 . Health Care Surrogate(s): Significant other- Guzman Canas . Today's verbally stated goals: Patient wants to be a FULL CODE . Family/friends goals: No family at bedside . Ethical and Legal Issues No ethical legal issues identified. Patient participating in medical decision making. . (Sp Colvin) Physical Exam Vital Signs Date Time Temp Pulse Resp B/P (MAP) Pulse Ox O2 Delivery O2 Flow Rate FiO2 05/05/17 08:24 98.5 95 16 158/89 (112) 96 05/05/17 04:53 98.0 105 16 154/74 (100) 92 05/05/17 04:01 101 05/05/17 00:54 98.1 110 20 169/97 (121) 98 05/04/17 23:48 99 22 170/86 (114) 96 Nasal Cannula 2.00 05/04/17 22:20 98 Nasal Cannula 2.00 05/04/17 15:49 98.0 94 20 143/67 (92) 96 Exam CONSTITUTIONAL/GENERAL: This is an adequately nourished patient, in no acute distress. TUBES/LINES/DRAINS: PIV, NC SKIN: No jaundice, rashes, or lesions. Ecchymoses on upper extremities. No wounds seen anteriorly. Skin temperature appropriate. Not diaphoretic. HEAD: Atraumatic. Normocephalic. EYES: Periorbital ecchymosis and edema to bilateral eyes.Limited assessment. ENT: Hearing grossly normal. Nose without bleeding or purulent drainage. Moist oral mucosa. NECK: Trachea midline. Supple, nontender. No palpable thyroid enlargement or nodularity. CARDIOVASCULAR: Irregular rate, rhythm without murmurs, gallops, or rubs. No JVD. Peripheral pulses symmetric. RESPIRATORY/CHEST: Symmetric, unlabored respirations. Diminished in the bases. Breath sounds equal bilaterally. O2 NC 2L . GASTROINTESTINAL: Abdomen soft, non-tender, nondistended. No guarding. Bowel sounds present. GENITOURINARY: Without palpable bladder distension. Adult brief. MUSCULOSKELETAL: Extremities without clubbing, cyanosis, or edema. No joint tenderness or effusion noted. No mottling or clubbing. NEUROLOGICAL: Lethargic, awake and oriented to person, place and situation. Motor and sensory grossly within normal limits. Follows commands. Moves all extremities. PSYCHIATRIC: No obvious anxiety/depression. no apparent hallucinations or other psychotic thought process. (Sp Colvin) Diagnostic Tests Laboratory Laboratory Tests Test 05/05/17 05:54 Prothrombin Time 10.4 SEC (9.8-11.6) Prothromb Time International Ratio 0.9 RATIO Blood Urea Nitrogen 35 MG/DL (7-18) Creatinine 0.82 MG/DL (0.50-1.00) Random Glucose 181 MG/DL (74-106) Total Protein 5.9 GM/DL (6.4-8.2) Albumin 3.2 GM/DL (3.4-5.0) Calcium Level 9.5 MG/DL (8.5-10.1) Phosphorus Level 3.4 MG/DL (2.5-4.9) Magnesium Level 2.0 MG/DL (1.5-2.5) Alkaline Phosphatase 62 U/L (45-117) Aspartate Amino Transf (AST/SGOT) 19 U/L (15-37) Alanine Aminotransferase (ALT/SGPT) 23 U/L (10-53) Total Bilirubin 1.2 MG/DL (0.2-1.0) Sodium Level 137 MEQ/L (136-145) Potassium Level 4.4 MEQ/L (3.5-5.1) Chloride Level 91 MEQ/L (98-107) Carbon Dioxide Level 40.3 MEQ/L (21.0-32.0) Anion Gap 6 MEQ/L (5-15) Estimat Glomerular Filtration Rate 69 ML/MIN (>89) Free Thyroxine 0.91 NG/DL (0.76-1.46) Thyroid Stimulating Hormone 3rd Gen 0.394 uIU/ML (0.358-3.740) (Sp Colvin) Result Diagram: 05/05/17 0554 Imaging Last Impressions Head CT 05/04/17 0000 Signed Impressions: Service Date/Time: , May 04, 2017 17:05 - CONCLUSION: 1. Large anterior frontal scalp hematoma. 2. Possible small anterior frontal lobe contusions. Hemal Lin MD Cervical Spine CT 05/04/17 0000 Signed Impressions: Service Date/Time: , May 04, 2017 17:05 - CONCLUSION: Multilevel degenerative findings. No evidence of fracture. Hemal Lin MD (Sp Colvin) Patient/Family Conference Issues Discussed: * Palliative care role, purpose, approach * Additional medical, psychosocial, and spiritual history * Patients general health, functional status, and cognitive changes in the months leading up to the current hospitalization-recent hospitalization for COPD exacerbation * Patient understanding of the current medical problems * Patients goals of care as best understood from advance directives and/or conversations and/or values * Current medical treatment options and benefits/burdens of those options * Questions answered to the best of my ability * Palliative care contact information provided (Sp Colvin) Assessment and Plan Disease Oriented Problem List: (1) Frontal lobe contusion (2) COPD exacerbation (3) Fall (4) Diabetes Symptom Scale: (1) Shortness of breath (2) Debility 0-10 Scale: Unable to quantify Pertinent Non-Medical Issues Psychosocial: Spiritual: Legal: Ethical issues impacting care: Important Contacts -Significant other- [facility]- Guzman Canas . Prognosis Mrs Montano is a 71 years old female with a past medical history of COPD and O2 dependant, DM, HTN, and irregular heart rate. Patient presented to the ED on after falling out of bed at [facility], complaining of headache and neck pain. Patient was recently discharged from the hospital on after being hospitalized for 4 days for COPD exacerbation. Given patient` s multiple ongoing chronic comorbidities and frequent hospitalizations, most likely patient will continue to decline. Plan PLAN: Legal decision maker: Patient is currently able to make her on medical decisions. In the event that she is incapacitated patient has a Healthcare Surrogate- Guzman Canas Goals of Care: Patient wants to pursue aggressive treatment. CODE STATUS: FULL CODE SYMPTOMS:==Pain- Patient s/p fall, c/o headache. Currently denies pain. ==Shortness of breath- Patient has a history of COPD, O2 dependant. Patient on Prednisone, Spiriva inhaler, Albuterol inhaler, Duonebs prn ==Anxiety- Patient managed with Lorazepam. ==Debility- Progressive. PT consulted. Palliative care will continue to follow the patient during hospital course as condition evolves, to assist patient/decision-maker with understanding of their medical conditions, weighing benefits/burdens of treatment options, for clarification of goals of treatment. Additionally will assist with any symptoms of palliative concern (Sp Colvin) Thank you for the opportunity to participate in the care of Ms. Montano. (Sp Colvin) Attestation To help prompt me to consider important information that might be impacting todays encounter, some historical information from prior notes written by myself or my colleagues may have been brought forward into todays note. My signature on this note, however, is an attestation that I personally performed the exam noted today, and, unless otherwise dated, the interactions with patient , family, and staff as well as the review of records noted all occurred today. I also attest that the listed assessment and stated plan reflect my best clinical judgment today based on the combination of historical information, prior notes, and todays exam/ interactions. The level of evaluation / management services and/or time that is claimed for this visit does NOT include work or time done by myself or other providers on previous visits. . (Sp Colvin) Collaborating MD Comments Patient seen and examined with LEONARD Tinsley. I agree with her assessment and plan. Witnessed conversation with patient in which she designated her significant other, Guzman Canas as healthcare surrogate, paperwork completed and sent to HIM to be scanned into EMR. . (Larissa Blank) Sp Colvin May 05, 2017 10:42 Larissa Blank May 05, 2017 17:40
[2017-05-05 11:45] VITALS: O2SAT 98
[2017-05-05 12:50] LABS: HEMOGLOBIN A1a 1.2 %; HEMOGLOBIN A1b 2.9 %; HEMOGLOBIN Ao 78.3 %; HEMOGLOBIN LA1C 2.5 %; HEMOGLOBIN P3 4.7 %
[2017-05-05 13:47] VITALS: BP 157/69; PULSE 107; RESP 18; TEMP 98.1; O2SAT 95
[2017-05-05 16:18] LABS: AUTOMATED NEUTROPHIL # 12.6 TH/MM3 (1.8-7.7); BASOPHIL % 0.1 % (0.0-2.0); EOSINOPHIL % 0.1 % (0.0-4.0); HEMATOCRIT 39.4 % (35.0-46.0); LYMPH % 2.7 % (9.0-44.0); LYMPHOCYTE # 0.4 TH/MM3 (1.0-4.8); MEAN CELL VOLUME 96.7 FL (80.0-100.0); MEAN CORPUSCULAR HEMOGLOBIN 31.2 PG (27.0-34.0); MEAN CORPUSCULAR HGB CONC 32.3 % (32.0-36.0); MONO % 6.1 % (0.0-8.0); PLATELET COUNT 157 TH/MM3 (150-450); RED BLOOD COUNT 4.07 MIL/MM3 (4.00-5.30); RED CELL DISTRIBUTION WIDTH 15.2 % (11.6-17.2); WHITE BLOOD COUNT 13.8 TH/MM3 (4.0-11.0)
[2017-05-05 16:29] LABS: HEMO FLAGS AUTO DIFF
[2017-05-05 17:06] LABS: SCAN/DIFF AUTO DIFF CONFIRMED
--- NOTE | 2017-05-08 21:47 | MB ---
cc: MAGDI ELY MD, ROHIT K. M.D. DATE OF CONSULTATION 05/05/2017 REASON FOR CONSULTATION Frontal lobe contusion. HISTORY OF PRESENT ILLNESS This 71-year-old female who was brought to [facility] Emergency Room after she rolled out of her bed and fell on the floor complaining of headache and neck pain. She was a nursing facility. Denies any loss of consciousness. She also suffers from severe COPD and is oxygen-dependent. CT scan of the head obtained reveals a small right frontal polar area contusions and CT of cervical spine does not reveal any fractures with degenerate changes noted. At this point she relates that the symptoms have resolved and overall headaches are much better, but she does have bilateral periorbital swelling and ecchymosis. She denies any numbness or paresthesias in the upper or lower extremities. PAST MEDICAL HISTORY 1. COPD oxygen dependent. 2. Hypertension. 3. Diabetes mellitus. 4. Irregular heart beat. 5. Hysterectomy. MEDICATIONS 1. Proventil inhaler. 2. Cardizem. 3. Cymbalta. 4. Insulin. 5. Lorazepam. 6. Nitrofuryntoin. 7. Prednisone. 8. Janumet. 9. Spiriva inhaler. 10. Diovan. ALLERGIES ERYTHROMYCIN AND PENICILLIN. SOCIAL HISTORY She is currently residing at [facility]. She is a heavy smoker although relates quitting 3 weeks ago. Denies alcohol or tobacco use. FAMILY HISTORY Positive for coronary artery disease in the father along with a coronary kidney disease and the colon cancer in mother. LABORATORY FINDINGS White blood cell count 13.8, hemoglobin 12.7, platelet count 157. PT 10.4, INR 0.9. Sodium 137, potassium 4.7, BUN 35, creatinine 0.82, glucose of 181. PHYSICAL EXAMINATION VITAL SIGNS: Temperature 98.5, pulse is 95, respiratory rate 16, blood pressure 158/89, oxygen saturations 96% on 2 liters nasal cannula. HEAD: She has bilateral periorbital ecchymosis and swelling although no lacerations. NECK: Supple with no guarding or rigidity and good range of motion. CHEST: Clear to auscultation bilaterally. HEART: Regular rate rhythm, normal S1-S2. ABDOMEN: Soft, nontender. Positive bowel sounds. No hepatosplenomegaly. EXTREMITIES: No cyanosis, edema or tenderness. EARS, NOSE, AND THROAT: No bleeding through the nose or drainage and patent airway. SKIN: She has no skin breakdown peripherally, although extensive forehead and periorbital ecchymosis and swelling. NEUROLOGIC: She is awake and alert. Pupils are equal, reactive. Extraocular muscles are intact. Face is symmetrical. Tongue is midline. Motor strength upper and lower extremities is 5/5. Normal sensation. Symmetrical reflexes. Speech is fluent. Negative Babinski. IMPRESSION 1. 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 2. Severe chronic obstructive pulmonary disease on chronic oxygen therapy. 3. Diabetes mellitus. 4. Hypertension. PLAN At this point is stable from a neurosurgical standpoint. She has been ambulating to the bathroom and denies feeling any dizzy or lightheadedness and does not appear to have any significant residual symptoms. At this point she is cleared for discharge back to rehab from neurosurgical standpoint and will be seen on as needed basis. MD CEFERINO Wang/CHANTEL /6:01 PM /9:30 PM
== END 2017-05-05 15:51 | disposition home or self-care (01) ==
LOC: NEDAMB 15:33 → NEDA 18:30 → NEPFCDU 05-05 00:42
PROVIDERS: ADMIT Hospitalist; ATTEND Hospitalist
DX: S06.330A Contusion and laceration of cerebrum, unspecified, without loss of consciousness, initial encounter (principal); J44.1 Chronic obstructive pulmonary disease with (acute) exacerbation; J96.10 Chronic respiratory failure, unspecified whether with hypoxia or hypercapnia; I10 Essential (primary) hypertension; F41.9 Anxiety disorder, unspecified; E11.9 Type 2 diabetes mellitus without complications; Z72.0 Tobacco use; Z99.81 Dependence on supplemental oxygen; Z79.84 Long term (current) use of oral hypoglycemic drugs; W06.XXXA Fall from bed, initial encounter; Y92.129 Unspecified place in nursing home as the place of occurrence of the external cause
CPT/HCPCS: 70450; 72125; 80053; 82948; 83036; 83735; 84100; 84439; 84443; 85025; 85610; 94640; 94664; 96372; 97162; 99285; G0378; G8987; G8988; J1815; J7512